=== PATIENT | female | born 1970 | race African-American/Black ===

== ENCOUNTER 2020-02-25 07:13 | Outpatient (REF) | payer MEDICAID, OTHER, SELFPAY ==
--- NOTE | 2020-02-25 07:36 | XR_ITS ---
EXAMINATION: RIGHT HIP. LUMBAR SPINE. CLINICAL INFORMATION: Pain right hip. Low back pain. COMPARISON: None TECHNIQUE: 2 views right hip. 5 views lumbar spine. FINDINGS: LUMBAR SPINE: There is normal lumbar lordosis. The vertebral heights and alignment is normal. There is no pars defect or listhesis on oblique views. No lytic or sclerotic process seen. The soft tissues are normal. RIGHT HIP: There is no visible acute fracture, dislocation or lytic process seen. There is mild inferior joint periarticular spurring. The soft tissues are normal. XR/XR lumbar spine 4V min IMPRESSION: Mild inferior right hip joint degenerative changes with spurring. No acute fracture, dislocation or lytic process seen. Unremarkable right hip exam
--- NOTE | 2020-02-25 07:38 | XR_ITS ---
EXAMINATION: RIGHT HIP. LUMBAR SPINE. CLINICAL INFORMATION: Pain right hip. Low back pain. COMPARISON: None TECHNIQUE: 2 views right hip. 5 views lumbar spine. FINDINGS: LUMBAR SPINE: There is normal lumbar lordosis. The vertebral heights and alignment is normal. There is no pars defect or listhesis on oblique views. No lytic or sclerotic process seen. The soft tissues are normal. RIGHT HIP: There is no visible acute fracture, dislocation or lytic process seen. There is mild inferior joint periarticular spurring. The soft tissues are normal. XR/XR hip RT min 2V IMPRESSION: Mild inferior right hip joint degenerative changes with spurring. No acute fracture, dislocation or lytic process seen. Unremarkable right hip exam
== END 2020-02-25 07:14 | disposition home or self-care (01) ==
LOC: HO.XRAY 07:13
PROVIDERS: Visit Provider Emergency Medicine
DX: M25.551 Pain in right hip (principal)
CPT/HCPCS: 72110; 73502

== ENCOUNTER 2020-03-18 16:11 | Emergency (ER) | payer MEDICAID, SELFPAY ==
[2020-03-18 16:45] VITALS: BP 196/177; PULSE 91; RESP 16; TEMP 36.7; O2SAT 96; BMI 34.2
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
[2020-03-18] MEDS: Amoxicillin/Potassium Clav 875 MG TABLET PO (20:24)
== END 2020-03-18 20:33 | disposition home or self-care (01) ==
PROVIDERS: Emergency Provider Emergency Medicine
DX: S01.551A Open bite of lip, initial encounter (principal); I10 Essential (primary) hypertension; E11.9 Type 2 diabetes mellitus without complications; Y04.1XXA Assault by human bite, initial encounter; Y93.9 Activity, unspecified; Y92.009 Unspecified place in unspecified non-institutional (private) residence as the place of occurrence of the external cause; Y99.0 Civilian activity done for income or pay; Z79.899 Other long term (current) drug therapy; Z23 Encounter for immunization
CPT/HCPCS: 90471; 90715; 99283; 99284

== ENCOUNTER 2020-03-27 10:11 | Outpatient (REF) | payer MEDICAID, SELFPAY ==
--- NOTE | 2020-03-27 10:13 | MR_ITS ---
EXAMINATION: MR LUMBAR SPINE WITHOUT CONTRAST CLINICAL INFORMATION: Chronic severe right hip pain. Radiculopathy. COMPARISON: Lumbar spine MRI from 11/01/2018. Lumbar spine radiographs from 02/25/2020. TECHNIQUE: MRI of the lumbar spine was obtained using routine sequences without contrast. FINDINGS: Minimal degenerative retrolisthesis of L5 on S1. Otherwise, normal anatomic alignment. Moderate degenerative disc disease at L5-S1. Mild degenerative disc disease at T11-T12 and L4-L5. Associated mild mixed Modic type discogenic endplate change at L5-S1. Mild marrow edema within the posterior elements of L5 suggestive of degenerative stress reaction. No additional suspicious marrow edema. The vertebral body heights are largely maintained. The conus medullaris terminates at the level of L1. The distal spinal cord is normal in appearance. No significant abnormalities of the paraspinal musculature. Limited evaluation of the intra-abdominal structures without significant abnormalities. The abdominal aorta is of normal contour and caliber. AXIAL SPINAL LEVELS: L1-L2: Normal annular contour. There is mild bilateral facet joint arthropathy. There is no neural foraminal stenosis. There is no spinal canal stenosis. L2-L3: Normal annular contour. There is moderate bilateral facet joint arthropathy. There is no neural foraminal stenosis. There is no spinal canal stenosis. L3-L4: Shallow diffuse disc bulge. There is moderate bilateral facet joint arthropathy. There is no neural foraminal stenosis. There is no spinal canal stenosis. L4-L5: Mild diffuse disc bulge. There is severe left and moderate right facet joint arthropathy. There is mild bilateral neural foraminal stenosis. There is stenosis of the subarticular zones with mild spinal canal stenosis centrally. L5-S1: Moderate diffuse disc bulge with superimposed small central protrusion. There is severe bilateral facet joint arthropathy. There is severe right and moderate to severe left neural foraminal stenosis. There is stenosis of the subarticular zones with no overt spinal canal stenosis centrally. MR/MR lumbar spine wo con IMPRESSION: Moderate degenerative spondyloarthropathy L5-S1. Mild multilevel degenerative spondyloarthropathy of the remainder of the lumbar spine. Most notably, there is mild spinal canal stenosis at L4-L5. Stenoses of the subarticular zones at L4-L5 and L5-S1. Moderate to severe neural foraminal stenoses at L5-S1 (worst on the right). Overall, degenerative changes at L5-S1 have mildly progressed compared to 11/01/2018. Degenerative changes at L4-L5 are similar to prior exam.
== END 2020-03-27 10:12 | disposition home or self-care (01) ==
LOC: HO.MRI 10:11
PROVIDERS: Visit Provider Emergency Medicine
DX: M25.551 Pain in right hip (principal); M54.16 Radiculopathy, lumbar region; M16.11 Unilateral primary osteoarthritis, right hip
CPT/HCPCS: 72148

== ENCOUNTER 2020-04-08 15:32 | Outpatient (REF) | payer MEDICAID, SELFPAY | END 2020-04-08 15:33 | disposition home or self-care (01) | LOC: HO.MRI 15:32 | PROVIDERS: Visit Provider Emergency Medicine | DX: Z13.89 Encounter for screening for other disorder (principal) ==

== ENCOUNTER 2020-06-14 07:37 | Outpatient (REF) | payer MEDICAID, SELFPAY ==
--- NOTE | ~2020-06-14 | MM_ITS ---
EXAMINATION: MM SCREENING DIGITAL BREAST TOMOSYNTHESIS, BILATERAL CLINICAL INFORMATION: Screening. Asymptomatic. The lifetime risk of breast cancer based on the Tyrer-Cuzick Model is 7%. COMPARISON: Mammography: 07/18/2018, 11/19/2016 TECHNIQUE: Digital breast tomosynthesis is performed in both the craniocaudal and mediolateral oblique views along with computer-aided detection (CAD). Synthesized 2D images are generated from the tomosynthesis. Additional bilateral exaggerated CC views are provided. FINDINGS: There are scattered areas of fibroglandular density (ACR BI-RADS breast composition Category b). Breast tissue borders on fatty replaced similar to prior studies. No developing density. There are no significant masses, abnormal calcifications, or other abnormalities. MM/MM tomosynthesis screening BI IMPRESSION: No mammographic evidence of malignancy. ASSESSMENT: BI-RADS 1: Negative RECOMMENDATION: Routine annual mammography screening. This patient's information was entered into a reminder system with a target due date for their next mammogram.
== END 2020-06-14 07:38 | disposition home or self-care (01) ==
LOC: HO.MAMMO 07:37
PROVIDERS: Visit Provider Registered Nurse Community Health
DX: Z12.31 Encounter for screening mammogram for malignant neoplasm of breast (principal)
CPT/HCPCS: 77063; 77067

== ENCOUNTER 2021-01-29 15:12 | Emergency (ER) | payer MEDICAID, OTHER, SELFPAY ==
--- NOTE | 2021-01-29 | ECG_ITS ---
Test Reason : chest pain Blood Pressure : / mmHG Vent. Rate : 082 BPM Atrial Rate : 082 BPM P-R Int : 168 ms QRS Dur : 076 ms QT Int : 386 ms P-R-T Axes : 061 -15 009 degrees QTc Int : 450 ms Sinus rhythm with occasional Premature ventricular complexes Minimal voltage criteria for LVH, may be normal variant ( R in aVL ) Borderline ECG No previous EKG. Referred By: Generic ED Physician Electronically Signed By:CHEIKH LOPEZ MD
[2021-01-29 15:36] VITALS: BP 135/77; PULSE 98; RESP 18; TEMP 36.8; O2SAT 89; BMI 33.7
[2021-01-29 19:18] VITALS: BP 153/92; PULSE 83; RESP 18; O2SAT 98
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
[2021-01-29 19:59] LABS: MANUAL DIFF FLAG NO
[2021-01-29 20:00] LABS: Basophils Percent Auto 0.5 % (0-2); Eosinophils Absolute Auto 0.1 X10*3/uL (0.0-0.4); Eosinophils Percent Auto 1.2 % (0-4); Imm Gran Abs Auto 0.02 X10*3/uL (0.00-0.03); Imm Gran Pct Auto 0.3 % (0.0-0.4); Lymphocytes Absolute Auto 4.1 X10*3/uL (1.2-4.9); Lymphocytes Percent Auto 53.9 % (20-40); Mean Corpuscular HGB Conc 31.6 g/dl (31.0-35.0); Mean Corpuscular Hemoglobin 26.7 pg (27.0-33.0); Mean Corpuscular Volume 84.4 fL (80.0-98.0); Mean Platelet Volume 9.4 fL (9.4-12.3); Monocytes Absolute Auto 0.6 X10*3/uL (0.1-1.2); Monocytes Percent Auto 7.7 % (2-11); Neutrophils Absolute Auto 2.8 x10*3/uL (2.0-8.3); Neutrophils Percent Auto 36.4 % (45-73); Platelet Count 311 X10*3/uL (160-400); White Blood Count 7.6 X10*3/uL (4.8-10.8)
[2021-01-29 20:13] LABS: Anion Gap 11 (12-20); Blood Urea Nitrogen 13 mg/dL (9-16); Calcium 9.5 mg/dL (8.4-10.2); Carbon Dioxide 30 mmol/L (22-29); Chloride 105 mmol/L (96-108); Creatinine Clr Calc Pharmacy 99.5; Estimated Glomerular Filt Rate > 60; Glucose Random 128 mg/dL (60-115); Sodium 142 mmol/L (135-145)
[2021-01-29 20:19] LABS: Troponin-I High Sensitivity < 3.5 ng/L (<3.5-17.0)
== END 2021-01-29 21:30 | disposition home or self-care (01) ==
PROVIDERS: Emergency Provider Internal Medicine
DX: R07.2 Precordial pain (principal); F43.20 Adjustment disorder, unspecified; I10 Essential (primary) hypertension; E11.9 Type 2 diabetes mellitus without complications
CPT/HCPCS: 36415; 80048; 84484; 85025; 93005; 99283; 99285

== ENCOUNTER 2021-07-22 11:05 | Emergency (ER) | payer MEDICAID, OTHER, SELFPAY ==
--- NOTE | ~2021-07-22 | XR_ITS ---
EXAMINATION: XR CHEST CLINICAL INFORMATION: Chest pain. COMPARISON: 03/24/2018 chest radiograph. TECHNIQUE: Frontal view of the chest was obtained. FINDINGS: No significant abnormality is noted involving the heart, lungs, mediastinum, bony thorax or soft tissues. XR/XR chest 1V IMPRESSION: No acute cardiopulmonary process.
--- NOTE | ~2021-07-22 | CT_ITS ---
EXAMINATION: CT ANGIOGRAM CHEST CLINICAL INFORMATION: Chest pain radiating to back COMPARISON: Chest radiograph 07/22/2021 TECHNIQUE: Multiple axial images were obtained through the chest after the administration of 70 mL of Omnipaque 350 intravenous contrast. Extensive vascular post-processing including two-dimensional and three-dimensional reformatted images were created and reviewed on an independent workstation. This CT examination was performed using dose optimization techniques as appropriate, variously including the following: *Automated exposure control *Adjustment of mA and/or kV according to patient size (this includes techniques or standardized protocols for targeted exams where dose is matched to indication/reason for exam; i.e. extremities or head) *Use of iterative reconstruction technique DLP: 584 mGy-cm VASCULAR FINDINGS: Marked motion artifact limits evaluation of the ascending aorta. The thoracic aorta appears unremarkable. There is no evidence of any aneurysm or dissection. 2 vessel branching pattern of the arch is seen with a common trunk involving the brachiocephalic and left carotid. No gross abnormalities seen involving the pulmonary arteries or pulmonary veins. Opacification of the pulmonary arteries is not adequate for PE diagnosis. The small visualized portion of the abdominal aorta appears normal with patent celiac SMA and single renal arteries bilaterally. NONVASCULAR FINDINGS: LUNGS: A tiny left upper lobe punctate calcified granuloma is present. The lungs are otherwise clear with no evidence of inflammation or worrisome nodules. MEDIASTINUM: The mediastinum is unremarkable. No mediastinal or hilar lymphadenopathy. PLEURA: There is no pleural effusion. No pleural mass or thickening. AXILLA: No lymphadenopathy. UPPER ABDOMEN: There is hepatic steatosis. OSSEOUS STRUCTURES: Degenerative changes present throughout the thoracic spine. CT/CT angio chest aorta IMPRESSION: No aortic dissection is seen. Fleischner guidelines were followed.
--- NOTE | 2021-07-22 11:39 | ED.CHESTPAIN ---
HPI - Chest Pain General Chief Complaint: Chest Pain Stated Complaint: CP RADIATING TO BACK Time Seen by Provider: 07/22/21 11:39 Source: patient Mode of arrival: EMS Limitations: no limitations History of Present Illness MD complaint: chest pain Onset (ago): hour(s) (8am this morning) Timing of current episode: constant Prior episodes: No Onset: during rest Pain location: substernal Pain radiation: back (wraps around both sides to back) Severity: moderate Quality: tightness and aching Relieving factors: rest Exacerbating factors: inspiration and movement Context: other (slept upright due to low back pain (chronic) was hunched over when she woke up couldn't lift her head or move and when she did hit caused pain in her chest) Associated symptoms: other (no associated symptoms) Treatment prior to arrival: aspirin Related Data Previous Rx's Medication Instructions Recorded amoxicillin 875 mg-potassium 1 tab PO Q12H 10 Days #20 tab 03/18/20 clavulanate 125 mg tablet (Augmentin) Allergies Allergy/AdvReac Type Severity Reaction Status Date / Time coffee (Coffea arabica) Allergy Intermediate VOMITING Verified 03/18/20 20:24 [COFFEE (BEVERAGE)] cabbage [CABBAGE] Allergy Mild ABDOMINAL Verified 03/18/20 20:24 PAIN, SWELLING, BLOATING cheese [CHEESE] Allergy Mild ABDOMINAL Verified 03/18/20 20:24 PAIN, SWELLING, BLOATING lactose [LACTOSE] Allergy Mild BLOATING Verified 03/18/20 20:24 peas [PEAS] Allergy Mild ABDOMINAL Verified 03/18/20 20:24 PAIN, SWELLING hydrochlorothiazide Allergy Unknown AMS Verified 03/18/20 20:24 [HYDROCHLOROTHIAZIDE] diphenhydramine AdvReac Intermediate HALLUCINATI Verified 03/18/20 20:24 [From BENADRYL] ONS broccoli [BROCCOLI] AdvReac Mild ABDOMINAL Verified 03/18/20 20:24 PAIN, BLOATING Review of Systems Review of Systems: Constitutional : No Weight loss, No Fever, No Chills ENT/Mouth : No sore throat, No Rhinorrhea Eyes: No Eye Pain, No Swelling Cardiovascular : pos Chest Pain, no SOB, no Dyspnea on Exertion, No Orthopnea, No Edema, No Palpitations Respiratory : No Cough, No Sputum Gastrointestinal : no Nausea, No Vomiting, No Diarrhea, No abdominal Pain, No Hematochezia, No Melena Genitourinary : No Dysuria, No Urinary Frequency Musculoskeletal : No joint pain, No Myalgias, No Joint Swelling Skin : No Skin Lesions, No rash Neuro : No Weakness, No Numbness, No Dizziness, No Headache Psych : No Anxiety/Panic, No Depression Heme/Lymph: No Bruising, No Lymphadenopathy Endocrine : No Polyuria, No Polydipsia All other systems reviewed and are negative [facility] Past Medical History Attestation statement: The following information was validated with the patient. Medical History Diabetes Hypertension Social History Social History Alcohol intake: never Patient Tobacco Use Status: Never used Tobacco Advance Directives: No Advance Directives Information Provided: Yes Physical Exam Vital Signs: Vital Signs: Last Vital Signs Temp 99.0 F 07/22/21 11:49 Pulse 98 07/22/21 11:49 Resp 22 H 07/22/21 11:49 BP 177/82 H 07/22/21 12:03 Pulse Ox 98 07/22/21 11:49 BMI result Body Mass Index 35.7 Appearance: Alert. Oriented X3. No acute distress. Eyes: Pupils equal, round and reactive to light. ENT: Pharynx normal. Neck: Normal inspection. Neck supple. CVS: Normal heart rate and rhythm. Pulses normal. Chest: ttp along chest wall reproduces pain Respiratory: No respiratory distress. Breath sounds normal. Abdomen: Soft and nontender. Skin: Skin warm and dry. Normal skin color. Normal skin turgor. Extremities: No lower extremity edema. No calf ttp Neuro: Oriented X 3. No motor deficit. No sensory deficit. Course Course Course Narrative: patient signed out pending CTA results and repeat troponin MDM - Chest Pain MDM Narrative Medical decision making narrative: 50 yo female with hx of HTN, DM slept upright in a chair with head pointing downwards when she woke up she couldn't raise her neck - when she tries to move and lift her head she has chest pain with no associated symptoms it does seem atypical but she reports chest pain radiating to the back and her R arm SBP > 20 points to left will obtain labs, troponin, IV morphine for pain CTA for dissection Lab Data Result diagrams: 07/22/21 12:01 07/22/21 12:01 Labs: Lab Results 07/22/21 07/22/21 07/22/21 Range/Units 12: 12: 12:01 WBC 5.6 (4.8-10.8) X10*3/uL RBC 4.89 (4.20-5.50) X10*6/uL Hgb 13.0 (12.0-16.0) g/dl Hct 41.0 (37.0-47.0) % MCV 83.8 (80.0-98.0) fL MCH 26.6 L (27.0-33.0) pg MCHC 31.7 (31.0-35.0) g/dl RDW 13.2 (11.0-16.0) % Plt Count 312 (160-400) X10*3/uL MPV 9.4 (9.4-12.3) fL Immature Gran % (Auto) 0.4 (0.0-0.4) % Neut % (Auto) 74.0 H (45-73) % Lymph % (Auto) 18.2 L (20-40) % [place] % (Auto) 7.2 (2-11) % Eos % (Auto) 0.0 (0-4) % Baso % (Auto) 0.2 (0-2) % Lymph # (Auto) 1.0 L (1.2-4.9) X10*3/uL [place] # (Auto) 0.4 (0.1-1.2) X10*3/uL Eos # (Auto) 0.0 (0.0-0.4) X10*3/uL Baso # (Auto) 0.0 (0.0-0.2) X10*3/uL Abs Immat Gran (auto) 0.02 (0.00-0.03) X10*3/uL Absolute Neuts (auto) 4.1 (2.0-8.3) x10*3/uL Absolute Nucleated RBC 0.000 (0.0-0.012) X10*3/uL Nucleated RBC % (auto) 0.0 (0.0-0.2) /100WBC PT (9.9-13.0) SEC INR (0.9-1.1) D-Dimer High Sensitivty NG/ML Sodium 138 (135-145) mmol/L Potassium 4.8 (3.3-5.1) mmol/L Chloride 102 (96-108) mmol/L Carbon Dioxide 27 (22-29) mmol/L Anion Gap 14 (12-20) BUN 11 (9-16) mg/dL Creatinine 0.81 (0.5-1.4) mg/dL Estim Creat Clear Calc 103.8 Estimated GFR > 60 Random Glucose 209 H (60-115) mg/dL Calcium 9.5 (8.4-10.2) mg/dL Magnesium 1.9 (1.6-2.6) mg/dL Total Bilirubin 0.4 (0.0-1.0) mg/dL Direct Bilirubin < 0.2 (0.0-0.5) mg/dL AST 28 (5-31) U/L ALT 28 (0-31) U/L Alkaline Phosphatase 98 (39-117) U/L Troponin I High Sens (<3.5-17.0) ng/L B-Natriuretic Peptide 12 (<100) pg/mL Total Protein 7.7 (6.5-8.0) g/dL Albumin 4.1 (3.5-5.0) g/dL Lipase 24 (8-78) U/L COVID-19 (MIS) (Negative) COVID-19 Clin Com 07/22/21 07/22/21 07/22/21 Range/Units 12:01 12:01 12:01 WBC (4.8-10.8) X10*3/uL RBC (4.20-5.50) X10*6/uL Hgb (12.0-16.0) g/dl Hct (37.0-47.0) % MCV (80.0-98.0) fL MCH (27.0-33.0) pg MCHC (31.0-35.0) g/dl RDW (11.0-16.0) % Plt Count (160-400) X10*3/uL MPV (9.4-12.3) fL Immature Gran % (Auto) (0.0-0.4) % Neut % (Auto) (45-73) % Lymph % (Auto) (20-40) % [place] % (Auto) (2-11) % Eos % (Auto) (0-4) % Baso % (Auto) (0-2) % Lymph # (Auto) (1.2-4.9) X10*3/uL [place] # (Auto) (0.1-1.2) X10*3/uL Eos # (Auto) (0.0-0.4) X10*3/uL Baso # (Auto) (0.0-0.2) X10*3/uL Abs Immat Gran (auto) (0.00-0.03) X10*3/uL Absolute Neuts (auto) (2.0-8.3) x10*3/uL Absolute Nucleated RBC (0.0-0.012) X10*3/uL Nucleated RBC % (auto) (0.0-0.2) /100WBC PT 11.0 (9.9-13.0) SEC INR 1.0 (0.9-1.1) D-Dimer High Sensitivty < 150 NG/ML Sodium (135-145) mmol/L Potassium (3.3-5.1) mmol/L Chloride (96-108) mmol/L Carbon Dioxide (22-29) mmol/L Anion Gap (12-20) BUN (9-16) mg/dL Creatinine (0.5-1.4) mg/dL Estim Creat Clear Calc Estimated GFR Random Glucose (60-115) mg/dL Calcium (8.4-10.2) mg/dL Magnesium (1.6-2.6) mg/dL Total Bilirubin (0.0-1.0) mg/dL Direct Bilirubin (0.0-0.5) mg/dL AST (5-31) U/L ALT (0-31) U/L Alkaline Phosphatase (39-117) U/L Troponin I High Sens < 3.5 (<3.5-17.0) ng/L B-Natriuretic Peptide (<100) pg/mL Total Protein (6.5-8.0) g/dL Albumin (3.5-5.0) g/dL Lipase (8-78) U/L COVID-19 (MIS) Negative (Negative) COVID-19 Clin Com See Note ECG Data ECG #1: Attestation: I personally reviewed and interpreted this ECG as follows: ECG interpretation date: 07/22/21 ECG interpretation time: 11:55 Interpretation: Rate: 95 Rhythm:NSR [place]: left, LVH Normal P waves. Normal ERROL. Normal QRS complex. ST T wave : normal no MELISSA qTC: normal prior studies: no acute ischemia The study has been interpreted contemporaneously by me. . Discharge Plan Discharge Clinical Impression: Chest pain Patient Disposition: Still a Patient Instructions: Chest Pain (ED) Additional Instructions: return to ED for any worsening symptoms or concerns Prescriptions: No Action amoxicillin-pot clavulanate [Augmentin] 875-125 mg tablet 1 tab PO Q12H 10 Days Qty: 20 0RF
--- NOTE | 2021-07-22 11:48 | ECG_ITS ---
Test Reason : chest pain Blood Pressure : / mmHG Vent. Rate : 095 BPM Atrial Rate : 095 BPM P-R Int : 154 ms QRS Dur : 070 ms QT Int : 364 ms P-R-T Axes : 062 -17 017 degrees QTc Int : 457 ms Normal sinus rhythm Minimal voltage criteria for LVH, may be normal variant ( R in aVL ) Borderline ECG When compared with ECG of 29-JAN-2021 19:47, Premature ventricular complexes are no longer Present Referred By: Ludy Alejandre Electronically Signed By:ALIS ANDREA
[2021-07-22 11:49] VITALS: BP 132/68; BP 157/95; PULSE 92; PULSE 98; RESP 22; TEMP 37.2; O2SAT 100; O2SAT 98; BMI 35.7
[2021-07-22 12:03] VITALS: BP 177/82
[2021-07-22] MEDS: Cyclobenzaprine HCl 10 MG TABLET PO (12:07)
[2021-07-22] MEDS: ondansetron HCL 4 MG/2 ML VIAL IVPUSH (12:08)
[2021-07-22] MEDS: Morphine Sulfate 4 MG/ML CARTRIDGE IVPUSH (12:08)
[2021-07-22 12:11] LABS: MANUAL DIFF FLAG NO
[2021-07-22 12:23] LABS: Basophils Percent Auto 0.2 % (0-2); Imm Gran Abs Auto 0.02 X10*3/uL (0.00-0.03); Imm Gran Pct Auto 0.4 % (0.0-0.4); Lymphocytes Percent Auto 18.2 % (20-40); Mean Corpuscular HGB Conc 31.7 g/dl (31.0-35.0); Mean Corpuscular Hemoglobin 26.6 pg (27.0-33.0); Mean Corpuscular Volume 83.8 fL (80.0-98.0); Mean Platelet Volume 9.4 fL (9.4-12.3); Monocytes Absolute Auto 0.4 X10*3/uL (0.1-1.2); Monocytes Percent Auto 7.2 % (2-11); Neutrophils Absolute Auto 4.1 x10*3/uL (2.0-8.3); Platelet Count 312 X10*3/uL (160-400); Red Blood Count 4.89 X10*6/uL (4.20-5.50); Red Cell Distribution Width 13.2 % (11.0-16.0); White Blood Count 5.6 X10*3/uL (4.8-10.8)
[2021-07-22 12:31] LABS: Alanine Aminotransferase 28 U/L (0-31); Albumin Level 4.1 g/dL (3.5-5.0); Alkaline Phosphatase 98 U/L (39-117); Anion Gap 14 (12-20); Aspartate Amino Transferase 28 U/L (5-31); Bilirubin Direct < 0.2 mg/dL (0.0-0.5); Bilirubin Total 0.4 mg/dL (0.0-1.0); Blood Urea Nitrogen 11 mg/dL (9-16); Calcium 9.5 mg/dL (8.4-10.2); Carbon Dioxide 27 mmol/L (22-29); Chloride 102 mmol/L (96-108); Creatinine Clr Calc Pharmacy 103.8; Estimated Glomerular Filt Rate > 60; Glucose Random 209 mg/dL (60-115); Lipase 24 U/L (8-78); Magnesium 1.9 mg/dL (1.6-2.6); Potassium 4.8 mmol/L (3.3-5.1); Sodium 138 mmol/L (135-145); Total Protein 7.7 g/dL (6.5-8.0)
[2021-07-22 12:33] LABS: Troponin-I High Sensitivity < 3.5 ng/L (<3.5-17.0)
[2021-07-22 12:34] LABS: B Type Natriuretic Peptide 12 pg/mL (<100)
[2021-07-22 12:35] LABS: D Dimer High Sensitivity < 150 NG/ML
[2021-07-22 12:48] LABS: COVID-19 Test Negative (Negative); IDNOW Serial# 55D5AD1C
[2021-07-22] MEDS: iohexoL 350 MG/ML 100 ML INFUS..BTL IV (16:06)
[2021-07-22 16:52] LABS: Troponin-I High Sensitivity < 3.5 ng/L (<3.5-17.0)
[2021-07-22 17:27] VITALS: BP 155/96; PULSE 108; RESP 16; TEMP 36.7; O2SAT 97
[2021-07-22] MEDS: Ibuprofen 600 MG TABLET PO (18:51)
== END 2021-07-22 18:59 | disposition home or self-care (01) ==
PROVIDERS: Emergency Provider Emergency Medicine
DX: R07.9 Chest pain, unspecified (principal); I10 Essential (primary) hypertension; E11.9 Type 2 diabetes mellitus without complications; Z20.822 Contact with and (suspected) exposure to COVID-19
CPT/HCPCS: 36415; 71045; 71275; 80048; 80076; 83690; 83735; 83880; 84484; 85025; 85379; 85610; 87635; 93005; 96374; 96375; 99284; 99285; J2270; J2405; Q9967

== ENCOUNTER 2021-10-02 14:31 | Outpatient (REF) | payer MEDICAID, OTHER, SELFPAY ==
--- NOTE | ~2021-10-02 | MM_ITS ---
EXAMINATION: MM SCREENING DIGITAL BREAST TOMOSYNTHESIS, BILATERAL CLINICAL INFORMATION: Screening. Asymptomatic. The lifetime risk of breast cancer based on the Tyrer-Cuzick Model is 7%. COMPARISON: Mammography: 06/14/2020, 07/15/2018, 11/19/2016 TECHNIQUE: Digital breast tomosynthesis is performed in both the craniocaudal and mediolateral oblique views along with computer-aided detection (CAD). Synthesized 2D images are generated from the tomosynthesis. FINDINGS: There are scattered areas of fibroglandular density (ACR BI-RADS breast composition Category b). There are no significant masses, abnormal calcifications, or other abnormalities. Breast tissue borders on predominantly fatty. No significant changes. MM/MM tomosynthesis screening BI IMPRESSION: No mammographic evidence of malignancy. ASSESSMENT: BI-RADS 1: Negative RECOMMENDATION: Routine annual mammography screening. This patient's information was entered into a reminder system with a target due date for their next mammogram.
== END 2021-10-02 14:32 | disposition home or self-care (01) ==
LOC: HO.MAMMO 14:31
PROVIDERS: PCP Registered Nurse Community Health; Visit Provider Registered Nurse Community Health
DX: Z12.31 Encounter for screening mammogram for malignant neoplasm of breast (principal)
CPT/HCPCS: 77063; 77067

== ENCOUNTER 2023-05-30 14:37 | Outpatient (REF) | payer MEDICAID, OTHER, SELFPAY ==
--- NOTE | ~2023-05-30 | XR_ITS ---
EXAMINATION: XR FOOT, LEFT CLINICAL INFORMATION: Left foot heel pain COMPARISON: Right foot 12/03/2015 TECHNIQUE: AP, lateral, and oblique views of the left foot. FINDINGS: A plantar calcaneal spur is present similar to what was seen in the right foot in 2016. Small rounded bony area seen in the superior calcaneus near the insertion of the Achilles tendon may be related to enthesopathy. The bones and soft tissues of the foot are otherwise unremarkable. No fracture. Alignment is anatomic. Joint spaces are maintained. XR/XR foot LT min 3V IMPRESSION: 1. Plantar calcaneal spur. 2. Possible enthesopathy at the insertion of the Achilles tendon.
== END 2023-05-30 14:38 | disposition home or self-care (01) ==
LOC: HO.HHCX 14:37
PROVIDERS: Visit Provider Nurse Practitioner Family
DX: M79.672 Pain in left foot (principal)
CPT/HCPCS: 73630

== ENCOUNTER 2023-12-09 09:43 | Outpatient (REF) | payer MEDICAID, OTHER, SELFPAY ==
[2023-12-12 21:44] LABS: Lyme Abs Screen <0.90 index
== END 2023-12-09 09:44 | disposition home or self-care (01) ==
LOC: HO.HHCL 09:43
PROVIDERS: Visit Provider Emergency Medicine
DX: M54.2 Cervicalgia (principal)
CPT/HCPCS: 36415; 86617; 86618

== ENCOUNTER 2023-12-18 09:53 | Emergency (ER) | payer MEDICAID, OTHER, SELFPAY ==
--- NOTE | ~2023-12-18 | CT_ITS ---
EXAMINATION: CT HEAD WITHOUT CONTRAST CT CERVICAL SPINE WITHOUT CONTRAST CLINICAL INFORMATION: Headache. COMPARISON: No relevant prior imaging. TECHNIQUE: [employer] images were obtained. CAD imaging of the head and cervical spine was performed without contrast. Data was reformatted into multiplanar images at the acquisition workstation. This CT examination was performed using dose optimization techniques as appropriate, including one or more of the following: Automated exposure control, iterative reconstruction, and adjustment of technique factors (mA and/or kVp) according to patient size (this includes techniques or standardized protocols for targeted exams where dose is matched to indication/reason for exam). Fleischner Society criteria for the followup of incidental pulmonary nodules was implemented if appropriate. DLP: 1406 mGy-cm. FINDINGS: There is no acute intracranial hemorrhage or abnormal extra-axial collection. No intracranial mass effect or midline shift. Lateral and third ventricles are normal. No hydrocephalus. Garduno-white matter differentiation is preserved and there is no evidence of acute territorial infarct. The calvarium and skull base are intact. Mastoid air cells and middle ear cavities are well aerated. No active paranasal sinus disease. Cervical spine: Spinal alignment is normal. Vertebral body heights are preserved. No acute fracture. No abnormal prevertebral soft tissue swelling. There is slight loss of intervertebral disc height with associated sclerotic degenerative endplate changes and hypertrophic disc osteophyte spurring at multiple levels. Grossly no spinal canal compromise. Visualized soft tissues of the neck are normal. Lung apices are clear. CT/CT head/brain wo IV con IMPRESSION: Head: Unremarkable examination. No evidence of acute territorial infarct or hemorrhage. Cervical Spine: There is multilevel degenerative spondylosis of the cervical spine. No evidence of acute fracture and no posttraumatic spinal subluxation. Grossly no spinal canal compromise. Electronically signed by: Ced Esparza MD 12/18/2023 02:22 PM EDT
--- NOTE | ~2023-12-18 | CT_ITS ---
EXAMINATION: CT HEAD WITHOUT CONTRAST CT CERVICAL SPINE WITHOUT CONTRAST CLINICAL INFORMATION: Headache. COMPARISON: No relevant prior imaging. TECHNIQUE: [employer] images were obtained. CAD imaging of the head and cervical spine was performed without contrast. Data was reformatted into multiplanar images at the acquisition workstation. This CT examination was performed using dose optimization techniques as appropriate, including one or more of the following: Automated exposure control, iterative reconstruction, and adjustment of technique factors (mA and/or kVp) according to patient size (this includes techniques or standardized protocols for targeted exams where dose is matched to indication/reason for exam). Fleischner Society criteria for the followup of incidental pulmonary nodules was implemented if appropriate. DLP: 1406 mGy-cm. FINDINGS: There is no acute intracranial hemorrhage or abnormal extra-axial collection. No intracranial mass effect or midline shift. Lateral and third ventricles are normal. No hydrocephalus. Garduno-white matter differentiation is preserved and there is no evidence of acute territorial infarct. The calvarium and skull base are intact. Mastoid air cells and middle ear cavities are well aerated. No active paranasal sinus disease. Cervical spine: Spinal alignment is normal. Vertebral body heights are preserved. No acute fracture. No abnormal prevertebral soft tissue swelling. There is slight loss of intervertebral disc height with associated sclerotic degenerative endplate changes and hypertrophic disc osteophyte spurring at multiple levels. Grossly no spinal canal compromise. Visualized soft tissues of the neck are normal. Lung apices are clear. CT/CT cervical spine wo IV con IMPRESSION: Head: Unremarkable examination. No evidence of acute territorial infarct or hemorrhage. Cervical Spine: There is multilevel degenerative spondylosis of the cervical spine. No evidence of acute fracture and no posttraumatic spinal subluxation. Grossly no spinal canal compromise. Electronically signed by: Ced Esparza MD 12/18/2023 02:22 PM EDT
[2023-12-18 10:02] VITALS: BP 171/77; PULSE 90; RESP 16; TEMP 36; O2SAT 98; BMI 39.5
[2023-12-18 11:47] LABS: MANUAL DIFF FLAG NO
[2023-12-18 11:48] VITALS: BP 157/81; PULSE 82; RESP 16; TEMP 36.6; O2SAT 100
[2023-12-18 11:51] LABS: Basophils Percent Auto 0.8 % (0-2); Eosinophils Percent Auto 0.6 % (0-4); Hematocrit 41.6 % (37.0-47.0); Hemoglobin 13.4 g/dl (12.0-16.0); Imm Gran Abs Auto 0.01 X10*3/uL (0.00-0.03); Imm Gran Pct Auto 0.2 % (0.0-0.4); Lymphocytes Absolute Auto 2.4 X10*3/uL (1.2-4.9); Mean Corpuscular HGB Conc 32.2 g/dl (31.0-35.0); Mean Corpuscular Hemoglobin 26.8 pg (27.0-33.0); Mean Corpuscular Volume 83.2 fL (80.0-98.0); Mean Platelet Volume 9.4 fL (9.4-12.3); Monocytes Absolute Auto 0.3 X10*3/uL (0.1-1.2); Monocytes Percent Auto 6.4 % (2-11); Platelet Count 315 X10*3/uL (160-400); Red Cell Distribution Width 13.2 % (11.0-16.0); White Blood Count 4.9 X10*3/uL (4.8-10.8)
[2023-12-18] MEDS: 0.9 % Sodium Chloride 1,000 ML 999 ML IV ×2 (11:51→13:12)
--- NOTE | 2023-12-18 11:54 | ED.GENADULT ---
HPI - General Adult General Chief complaint: Neck Pain/Injury Stated complaint: Neck pain/Headache Time Seen by Provider: 12/18/23 10:58 Source: patient Mode of arrival: ambulatory Limitations: no limitations History of Present Illness ED Provider: DR. Galvin HPI narrative: 53-year-old female came in for evaluation of right-sided neck pain radiates up to behind the right ear and down to the right shoulder pain started 3 weeks ago patient was evaluated at [facility] was discharged on prophylactic antibiotic, and pain medication the patient stated did not improve. Patient declined having a fever or photophobia, pain is more if she tried to turn her neck to the left side, or squeeze her right side of the neck. No history of trauma or injury or strenuous activity recently. Related Data Previous Rx's ?Medication ?Instructions ?Recorded amoxicillin 875 mg-potassium 1 tab PO Q12H 10 days #20 tabs 03/18/20 clavulanate 125 mg tablet (Augmentin) ibuprofen 600 mg tablet 600 mg PO Q6H PRN pain #30 tabs 07/22/21 cyclobenzaprine 10 mg tablet 10 mg PO TID PRN muscle spasm #20 12/18/23 tabs oxycodone 5 mg tablet 5 mg PO BID PRN pain #10 tabs 12/18/23 Allergies Allergy/AdvReac Type Severity Reaction Status Date / Time coffee (Coffea arabica) Allergy Intermediate VOMITING Verified 12/18/23 10:06 [COFFEE (BEVERAGE)] cabbage [CABBAGE] Allergy Mild ABDOMINAL Verified 12/18/23 10:06 PAIN, SWELLING, BLOATING cheese [CHEESE] Allergy Mild ABDOMINAL Verified 12/18/23 10:06 PAIN, SWELLING, BLOATING lactose [LACTOSE] Allergy Mild BLOATING Verified 12/18/23 10:06 peas [PEAS] Allergy Mild ABDOMINAL Verified 12/18/23 10:06 PAIN, SWELLING hydrochlorothiazide Allergy Unknown AMS Verified 12/18/23 10:06 [HYDROCHLOROTHIAZIDE] diphenhydramine AdvReac Intermediate HALLUCINATI Verified 12/18/23 10:06 [From BENADRYL] ONS broccoli [BROCCOLI] AdvReac Mild ABDOMINAL Verified 12/18/23 10:06 PAIN, BLOATING Review of Systems Review of Systems: All other systems are reviewed and are negative Constitutional: Reports as per HPI and Reports no additional constitutional complaints Eyes: Reports as per HPI and Reports no additional eye complaints Reports system reviewed and no additional complaints, except as documented Cardiovascular: Reports as per HPI and Reports no additional cardiovascular complaints Respiratory: Reports as per HPI and Reports no additional respiratory complaints Gastrointestinal: Reports as per HPI and Reports no additional gastrointestinal complaints Genitourinary: Reports no additional female genitourinary complaints Musculoskeletal: Reports no additional musculoskeletal complaints Skin/Breast: Reports system reviewed and no additional complaints, except as docu Psychiatric: Reports no additional psychiatric complaints Endocrine: Reports no additional endocrine complaints Hematologic/Lymphatic: Reports no additional hematologic/lymphatic complaints Allergic/Immunologic: Reports no additional allergic/immunologic complaints Reports system reviewed and no additional complaints, except as documented and Reports Abnormal speech present [facility] Past Medical History Medical History Hypertension Diabetes Social History Social History Alcohol intake: never Patient Tobacco Use Status: Never used Tobacco Smoked in Last 30 Days: No Use of substances other than those prescribed or required for medical reasons: No Advance Directives: No Advance Directives Information Provided: No Patient : No Physical Exam ED Vital Signs: Vital Signs - 24 hr 12/18/23 10:02 12/18/23 11:48 12/18/23 13:05 Temperature 96.8 F 97.9 F Pulse Rate 90 82 Respiratory Rate 16 16 14 Blood Pressure 171/77 H 157/81 H Pulse Oximetry 98 100 Oxygen Delivery Method Room Air Room Air BMI result Body Mass Index 39.5 Vital signs have been reviewed and appear to be correct. Blood pressure elevated. Heart rate normal. Respiratory rate normal. Temperature normal. Oxygen saturation normal. Appearance: Alert. Oriented X3. No acute distress. Head: Normal external exam. Normocephalic. Atraumatic. No Juan signs noted. No raccoon eyes noted Eyes: PERRLA. EOMI. Conjunctiva and sclera normal. Eyelids normal. ENT: TM's Normal. Pharynx normal. Uvula midline. Moist mucous membranes. No trismus noted. No drooling noted. No muffled voice noted. Neck: Normal inspection. Neck supple. FROM. No adenopathy. Thyroid Normal. No meningeal signs. No neck mass noted. Spasm of the right sternocleinoide muscle, unable to turn her head to the left side due to spasm. CVS: Normal heart rate and rhythm. Heart sound normal. No murmurs noted. Pulses normal throughout. Respiratory: No respiratory distress. Painless inspiration. Breath sounds normal. No wheezes/rales/rhonchi noted. Chest nontender. No accessory muscle usage noted or decreased air movement noted. Abdomen: Soft and nontender. Bowel sounds normal in all 4 quadrants. No distention noted. No organomegaly noted. No visible injury noted. Back: No CVA tenderness. Full range of motion noted. Skin: Skin warm and dry. Normal skin color. Normal skin turgor. No rashes/lesions/lacerations noted. Extremities: No lower extremity edema. Extremities exhibit normal range of motion. Extremities nontender. Neuro: Oriented X 3. Cranial nerve exam: II-XII are grossly intact No motor deficit. No sensory deficit. Reflexes normal. Course Reevaluation(s) Reevaluation #1: 53-year-old female came in with history of 3 weeks of neck pain radiating to head and shoulder, no photophobia, no fever, no chills, No leukocytosis and normal sed rate, no risk for meningitis or encephalitis, physical exam is more consistent with muscular spasm patient felt better after received Toradol and morphine, has more neck mobility and less stiffness. no indication for infectious process on CT of the head and neck. Lactic acidosis likely secondary to decreased hydration with improvement of lactic acid after IV fluids. Time: 15:00 Medications Administered Discontinued Medications Generic Name Dose Route Start Last Admin Trade Name Freq PRN Reason Stop Dose Admin Sodium Chloride 1,000 mls @ 999 mls/hr 12/18/23 10:59 12/18/23 14:31 Ns IV 12/18/23 11:59 Infused .Q1H1M ONE Infusion Sodium Chloride 1,000 mls @ 999 mls/hr 12/18/23 12:16 12/18/23 13:12 Ns IV 12/18/23 13:16 999 mls/hr .Q1H1M ONE Administration Ketorolac Tromethamine 30 mg 12/18/23 11:55 12/18/23 13:05 Ketorolac Tromethamine 30 Mg/Ml Vial IVPUSH 12/18/23 11:56 30 mg ONCE ONE Administration Morphine Sulfate 1 mg 12/18/23 11:55 12/18/23 13:05 Morphine Sulfate 2 Mg/Ml Cartridge IVPUSH 12/18/23 11:56 1 mg ONCE ONE Administration Protocol Medical Decision Making Differential Diagnosis Differential Diagnoses: The differential diagnosis associated with the presentation includes ( Meningitis, intracranial bleed, soft tissue neck abscess, myofascial spasm, rhabdomyolysis, cervical radiculopathy, severe anemia, electrolyte derangement.) Admission/Observation Consideration of admission/observation: Escalation of care including admission/observation considered Lab Data MDM Lab Attestation statement: I reviewed the patient's lab results. 12/18/23 11:40 12/18/23 11:40 Labs: Lab Results 12/18/23 12/18/23 12/18/23 Range/Units 11:40 11:41 11:52 WBC 4.9 (4.8-10.8) X10*3/uL RBC 5.00 (4.20-5.50) X10*6/uL Hgb 13.4 (12.0-16.0) g/dl Hct 41.6 (37.0-47.0) % MCV 83.2 (80.0-98.0) fL MCH 26.8 L (27.0-33.0) pg MCHC 32.2 (31.0-35.0) g/dl RDW 13.2 (11.0-16.0) % Plt Count 315 (160-400) X10*3/uL MPV 9.4 (9.4-12.3) fL Immature Gran % (Auto) 0.2 (0.0-0.4) % Neut % (Auto) 42.0 L (45-73) % Lymph % (Auto) 50.0 H (20-40) % Estill % (Auto) 6.4 (2-11) % Eos % (Auto) 0.6 (0-4) % Baso % (Auto) 0.8 (0-2) % Lymph # (Auto) 2.4 (1.2-4.9) X10*3/uL Estill # (Auto) 0.3 (0.1-1.2) X10*3/uL Eos # (Auto) 0.0 (0.0-0.4) X10*3/uL Baso # (Auto) 0.0 (0.0-0.2) X10*3/uL Abs Immat Gran (auto) 0.01 (0.00-0.03) X10*3/uL Absolute Neuts (auto) 2.0 (2.0-8.3) x10*3/uL Absolute Nucleated RBC 0.000 (0.0-0.012) X10*3/uL Nucleated RBC % (auto) 0.0 (0.0-0.2) /100WBC ESR 7 (0-20) MM/HR Hold Purple Top SEE NOTE Sodium 139 (135-145) mmol/L Potassium 3.6 (3.3-5.1) mmol/L Chloride 105 (96-108) mmol/L Carbon Dioxide 25 (22-29) mmol/L Anion Gap 13 (12-20) BUN 10 (9-16) mg/dL Creatinine 0.85 (0.5-1.4) mg/dL Estim Creat Clear Calc 88.0 Estimated GFR > 60 Random Glucose 209 H (60-115) mg/dL Lactic Acid 2.6 H* (0.5-2.0) mmol/L Calcium 10.1 D (8.4-10.2) mg/dL Total Bilirubin 0.4 (0.0-1.0) mg/dL Direct Bilirubin 0.1 (0.0-0.5) mg/dL AST 19 (5-31) U/L ALT 26 (0-31) U/L Alkaline Phosphatase 86 (39-117) U/L Total Creatine Kinase 117 (26-140) U/L Troponin I High Sens < 2.7 (<3.5-17.0) ng/L C-Reactive Protein 0.68 H (< or = 0.50) mg/dL Total Protein 8.3 H (6.5-8.0) g/dL Albumin 4.5 (3.5-5.0) g/dL Lipase 23 (8-78) U/L Urine Color Yellow Urine Appearance Clear Urine pH 6.5 (5.0-9.0) Ur Specific Lyman 1.015 (1.005-1.025) Urine Protein Negative (Neg-Trace) mg/dL Urine Glucose (UA) 100 H (Negative) mg/dL Urine Ketones Negative (Negative) mg/dL Urine Blood Negative (Negative) Urine Nitrite Negative (Negative) Ur Leukocyte Esterase Negative (Negative) Influenza Type A (PCR) (Negative) Influenza Type B (PCR) (Negative) RSV RNA Qual (PCR) (Negative) SARS-CoV-2 RNA (RT-PCR) (Negative) 12/18/23 Range/Units 12:44 WBC (4.8-10.8) X10*3/uL RBC (4.20-5.50) X10*6/uL Hgb (12.0-16.0) g/dl Hct (37.0-47.0) % MCV (80.0-98.0) fL MCH (27.0-33.0) pg MCHC (31.0-35.0) g/dl RDW (11.0-16.0) % Plt Count (160-400) X10*3/uL MPV (9.4-12.3) fL Immature Gran % (Auto) (0.0-0.4) % Neut % (Auto) (45-73) % Lymph % (Auto) (20-40) % Estill % (Auto) (2-11) % Eos % (Auto) (0-4) % Baso % (Auto) (0-2) % Lymph # (Auto) (1.2-4.9) X10*3/uL Estill # (Auto) (0.1-1.2) X10*3/uL Eos # (Auto) (0.0-0.4) X10*3/uL Baso # (Auto) (0.0-0.2) X10*3/uL Abs Immat Gran (auto) (0.00-0.03) X10*3/uL Absolute Neuts (auto) (2.0-8.3) x10*3/uL Absolute Nucleated RBC (0.0-0.012) X10*3/uL Nucleated RBC % (auto) (0.0-0.2) /100WBC ESR (0-20) MM/HR Hold Purple Top Sodium (135-145) mmol/L Potassium (3.3-5.1) mmol/L Chloride (96-108) mmol/L Carbon Dioxide (22-29) mmol/L Anion Gap (12-20) BUN (9-16) mg/dL Creatinine (0.5-1.4) mg/dL Estim Creat Clear Calc Estimated GFR Random Glucose (60-115) mg/dL Lactic Acid (0.5-2.0) mmol/L Calcium (8.4-10.2) mg/dL Total Bilirubin (0.0-1.0) mg/dL Direct Bilirubin (0.0-0.5) mg/dL AST (5-31) U/L ALT (0-31) U/L Alkaline Phosphatase (39-117) U/L Total Creatine Kinase (26-140) U/L Troponin I High Sens (<3.5-17.0) ng/L C-Reactive Protein (< or = 0.50) mg/dL Total Protein (6.5-8.0) g/dL Albumin (3.5-5.0) g/dL Lipase (8-78) U/L Urine Color Urine Appearance Urine pH (5.0-9.0) Ur Specific Lyman (1.005-1.025) Urine Protein (Neg-Trace) mg/dL Urine Glucose (UA) (Negative) mg/dL Urine Ketones (Negative) mg/dL Urine Blood (Negative) Urine Nitrite (Negative) Ur Leukocyte Esterase (Negative) Influenza Type A (PCR) NEGATIVE (Negative) Influenza Type B (PCR) NEGATIVE (Negative) RSV RNA Qual (PCR) NEGATIVE (Negative) SARS-CoV-2 RNA (RT-PCR) NEGATIVE (Negative) Independent Interpretation I performed an independent interpretation of an: CT Scan ( head/cervical spine CT:There is no acute intracranial hemorrhage or abnormal extra-axial collection. No intracranial mass effect or midline shift. Lateral and third ventricles are normal. No hydrocephalus. Garduno-white matter differentiation is preserved and there is no evidence of acute territor) Radiology Impression Discussion of test interpretation with radiology: I have reviewed the radiologist's reading. Discharge Plan Discharge Clinical Impression: Strain of neck muscle Patient Disposition: Home, Self-Care Instructions: Cervical Strain (ED) Prescriptions: New oxycodone 5 mg tablet 5 mg PO BID PRN (Reason: pain) Qty: 10 0RF Rx Instructions: Partial Fill upon patient request. cyclobenzaprine 10 mg tablet 10 mg PO TID PRN (Reason: muscle spasm) Qty: 20 0RF No Action amoxicillin-pot clavulanate [Augmentin] 875-125 mg tablet 1 tab PO Q12H 10 Days Qty: 20 0RF ibuprofen 600 mg tablet 600 mg PO Q6H PRN (Reason: pain) Qty: 30 0RF Referrals: [facility] [Physician] - Print Language: Cymro
[2023-12-18 12:00] LABS: Appearance Urine Clear; Color Urine Yellow; Glucose Urine UA 100 mg/dL (Negative); Leukocyte Esterase Urine Negative (Negative); Nitrite Urine Negative (Negative); PH 6.5 (5.0-9.0); Specific Gravity - Urine 1.015 (1.005-1.025); Urine Blood Negative (Negative); Urine Ketones Negative (Negative); Urine Protein Negative (Neg-Trace)
[2023-12-18 12:05] LABS: Alanine Aminotransferase 26 U/L (0-31); Albumin Level 4.5 g/dL (3.5-5.0); Alkaline Phosphatase 86 U/L (39-117); Anion Gap 13 (12-20); Aspartate Amino Transferase 19 U/L (5-31); Bilirubin Direct 0.1 mg/dL (0.0-0.5); Bilirubin Total 0.4 mg/dL (0.0-1.0); Blood Urea Nitrogen 10 mg/dL (9-16); C Reactive Protein 0.68 mg/dL (< or = 0.50); Calcium 10.1 mg/dL (8.4-10.2); Carbon Dioxide 25 mmol/L (22-29); Chloride 105 mmol/L (96-108); Estimated Glomerular Filt Rate > 60; Glucose Random 209 mg/dL (60-115); Lipase 23 U/L (8-78); Potassium 3.6 mmol/L (3.3-5.1); Sodium 139 mmol/L (135-145); Total Protein 8.3 g/dL (6.5-8.0)
[2023-12-18 12:15] LABS: Lactic Acid 2.6 mmol/L (0.5-2.0); Troponin-I High Sensitivity < 2.7 ng/L (<3.5-17.0)
[2023-12-18 12:28] LABS: Erythrocyte Sedimentation Rate 7 MM/HR (0-20)
[2023-12-18 13:05] VITALS: RESP 14
[2023-12-18] MEDS: Ketorolac Tromethamine 30 MG/ML VIAL IVPUSH (13:05)
[2023-12-18] MEDS: Morphine Sulfate 2 MG/ML CARTRIDGE 1 MG IVPUSH (13:05)
[2023-12-18 13:34] LABS: Influenza A PCR NEGATIVE (Negative); Influenza B PCR NEGATIVE (Negative); Resp Syncy Virus RNA Qual PCR NEGATIVE (Negative); SARS COV2 PCR INHOUSE NEGATIVE (Negative)
[2023-12-18 13:45] LABS: Reflex Lactate? Lactic Acid Added
[2023-12-18 15:30] VITALS: BP 135/78; PULSE 79; RESP 17; O2SAT 98
[2023-12-18 15:34] LABS: ~Lactic Acid-LAB USE ONLY 1.6 mmol/L (0.5-2.0)
[2023-12-18 16:29] VITALS: BP 140/82; PULSE 82; RESP 16; TEMP 36.5; O2SAT 100
== END 2023-12-18 16:44 | disposition home or self-care (01) ==
PROVIDERS: Emergency Provider Emergency Medicine
DX: S16.1XXA Strain of muscle, fascia and tendon at neck level, initial encounter (principal); M54.2 Cervicalgia; R51.9 Headache, unspecified; H92.01 Otalgia, right ear; X58.XXXA Exposure to other specified factors, initial encounter; Y93.89 Activity, other specified; Y92.89 Other specified places as the place of occurrence of the external cause; Y99.8 Other external cause status; Z03.818 Encounter for observation for suspected exposure to other biological agents ruled out; Z79.899 Other long term (current) drug therapy
CPT/HCPCS: 0241U; 36415; 70450; 72125; 80048; 80076; 81003; 82550; 83605; 83690; 84484; 85025; 85652; 86140; 87040; 96361; 96374; 96375; 99284; 99285; J1885; J2270

== ENCOUNTER 2024-07-30 12:11 | Outpatient (REF) | payer MEDICAID, OTHER, SELFPAY ==
[2024-07-30 13:30] LABS: Hematocrit 38.6 % (37.0-47.0); Hemoglobin 12.2 g/dl (12.0-16.0); Mean Corpuscular HGB Conc 31.6 g/dl (31.0-35.0); Mean Corpuscular Hemoglobin 26.8 pg (27.0-33.0); Mean Corpuscular Volume 84.6 fL (80.0-98.0); Mean Platelet Volume 9.9 fL (9.4-12.3); NRBC Pct Auto 0.3 /100WBC (0.0-0.2); Platelet Count 340 X10*3/uL (160-400); Red Blood Count 4.56 X10*6/uL (4.20-5.50); Red Cell Distribution Width 13.8 % (11.0-16.0); White Blood Count 6.6 X10*3/uL (4.8-10.8)
[2024-07-30 13:32] LABS: Estimated Average Glucose 186 mg/dL; Hemoglobin A1C 209.2988 umol/L; Hemoglobin A1c % 8.1 % (<6.0); Total Hemoglobin (HGBA1C) 3198.3173 umol/L
--- OUTSIDE RECORDS SUMMARY | 2024-07-30 13:43 | XMS_ITS | Clinical Summary ---
Author Organization [facility] Address [address] [place] [address] Care Team Providers Care Engineering Supplies Sales Name Role Phone Miah Emerson Primary Care Provider [phone] Allergies Active Allergy Reactions Criticality Noted Date Comments Latex, Natural Rubber 07/02/2020 Added based on information entered during case entry, please review and add reactions, type, and severity as needed Medications acetaminophen- codeine (TYLENOL #3) 300-30 mg tablet Take 1 tablet by mouth every 6 hours as needed. 1 7 Active amLODIPine (NORVASC) 10 mg tablet TAKE (1) TABLET DAILY. 5 7 Active VITAMIN C 250 mg tablet TAKE (1) TABLET 3 TIMES DAILY. 4 7 Active atenolol (TENORMIN) 25 mg tablet TAKE (1) TABLET DAILY. 5 7 Active VITAMIN D3 2,000 unit capsule Take 1 capsule by mouth. 5 7 Active glipiZIDE (GLUCOTROL) 10 mg tablet TAKE (1) TABLET TWICE DAILY BEFORE MEALS 6 7 Active lisinopril (PRINIVIL,ZEST RIL) 40 mg tablet TAKE (1) TABLET DAILY. 5 7 Active metFORMIN (GLUCOPHAGE) 850 mg tablet TAKE 1 TABLET TWICE DAILY WITH BREAKFAST AND DINNER. 3 7 Active Freestyle Lite test strips test blood sugar 5 7 Active fluticasone (FLONASE) 50 mcg/actuation nasal spray Administer 1 spray into each nostril. 0 7 Active PROAIR HFA 90 mcg/actuation inhaler INHALE 2 PUFFS FOUR TIMES DAILY NEEDED FOR WHEEZING 0 Active amoxicillin (AMOXIL) 500 mg capsule TAKE 1 CAPSULE BY MOUTH EVERY 8 HOURS UNTIL FINISHED 0 Active atorvastatin (LIPITOR) 40 mg tablet Take 40 mg by mouth nightly. at bedtime Pt states she is not taking 0 Active azithromycin (ZITHROMAX) 250 mg tablet TAKE 2 TABLETS BY MOUTH ON DAY 1, THEN TAKE 1 TABLET DAILY ON DAYS 2-5 0 Active ciclopirox (PENLAC) 8 % solution APPLY TO affected toenails EVERY DAY, preferably AT BEDTIME OR 8 HOURS BEFORE WASHING 0 Active cyclobenzaprin e (FLEXERIL) 10 mg tablet Take 10 mg by mouth 3 times a day. 9 Active DELSYM 12 HOUR 30 mg/5 mL liquid TAKE 10 ML BY MOUTH EVERY TWELVE HOURS NEEDED FOR COUGH 0 Active VOLTAREN 1 % gel APPLY 2g TO AFFECTED AREA(S) THREE TIMES DAILY 9 Active TRULICITY 0.75 mg/0.5 mL injection dose INJECT ONE PEN (=0.75MG) SUBCUTANEOUSLY ONCE A WEEK DIRECTED 0 Active erythromycin (ILOTYCIN) 0.5% ophthalmic ointment APPLY SMALL AMOUNT TO LEFT UPPER EYELID TWICE DAILY FOR 7 DAYS 0 Active ibuprofen (MOTRIN) 800 mg tablet Take 800 mg by mouth 3 times a day with meals. 9 Active ipratropium (ATROVENT) 0.03% nasal spray USE 2 SPRAYS IN EACH NOSTRIL 2-3 TIMES DAILY 0 Active lidocaine (LIDODERM) 5% patch apply 1 patch to skin leave on for 12 hours and off for 12 hours as directed 9 Active PARoxetine (PAXIL) 10 mg tablet Take 10 mg by mouth daily. 9 Active traMADoL (ULTRAM) 50 mg tablet TAKE 1 TABLET BY MOUTH EVERY TWELVE HOURS NEEDED 9 Active metFORMIN XR (GLUCOPHAGE-XR ) 750 mg 24 hr tablet Take 750 mg by mouth 2 times a day with meals. 0 Active naproxen (NAPROSYN) 500 mg tablet Take 500 mg by mouth 2 times a day with meals. 0 Active Active Problems Problem Noted Date Diagnosed Date Encounter for screening colonoscopy 07/01/2020 Social History Tobacco Use Types Packs/Day Years Used Date Smoking Tobacco: Never Smokeless Tobacco: Never Comments Unknown Sex and Gender Information Value Date Recorded Sex Assigned at Not on file Legal Sex Female 2:32 PM EDT Gender Identity Not on file Sexual Orientation Not on file Last Filed Vital Signs Vital Sign Reading Time Taken Comments Blood Pressure 130/54 07/01/2020 1:14 PM EDT Pulse 99 07/01/2020 1:14 PM EDT Temperature 36.2 ??C (97.1 ??F) 07/01/2020 1:14 PM ED T Respiratory Rate 18 07/01/2020 1:14 PM EDT Oxygen Saturation 100% 02/01/2017 10:00 AM EST Inhaled Oxygen Concentration - - Weight 102.1 kg (225 lb) 09/08/2020 2:36 PM EDT Height 172.7 cm (5' 8 ) 09/08/2020 2:36 PM EDT Body Mass Index 34.21 09/08/2020 2:36 PM EDT Plan of Treatment Health Maintenance Due Date Last Done Comments Cervical Cancer Screening 1968 Cologuard 1968 Colon Cancer Screening 1968 Colonoscopy 1968 FOBT / Fit Test 1968 HIV Screening 1968 HPV and Pap Smear 1968 Pap Smear 1968 Sigmoidoscopy 1968 Hepatitis B Vaccines (1 of 3 - 19+ 3-dose series) 07/27 Pneumococcal Vaccine: 50+ Years (1 of 1 - PCV) 019 Zoster Vaccines (1 of 2) 2018 Alcohol/Substance Use Screening 03/28/2024 Influenza Vaccine (Season Ended) 2024 DTaP,Tdap,and Td Vaccines (2 - Td or Tdap) 03/18/2030 03/18/2020 RSV Vaccine (60+ years old a nd patients) (1 - 1-dose 75+ series) 08/24/2043 Insurance [employer] [facility]/FREE C[employer] Care Teams Engineering Supplies Sales Relationship Specialty Start Date End Date Miah Emerson [address] [place] [id number] PCP - General Internal Medicine 12/29/16
--- OUTSIDE RECORDS SUMMARY | 2024-07-30 13:43 | XMS_ITS | Referral Summary ---
Author Organization [facility] Address [address] [place] [address] Care Team Providers Care Electrical Maintenance Worker Name Role Phone Miah Emerson Primary Care Provider [phone] Allergies Active Allergy Reactions Criticality Noted Date [...] 09/08/2020 2:36 PM EDT Plan of Treatment Not on file Insurance [facility] [employer]/FREE CARE Care Teams Electrical Maintenance Worker Relationship Specialty Start Date End Date Miah Emerson [address] [place] [id number] PCP - General Internal Medicine 12/29/16
--- OUTSIDE RECORDS SUMMARY | 2024-07-30 13:43 | XMS_ITS | Encounter Summary ---
Author Organization [employer] Address [address] [facility] 7t [place] [address] Care Team Providers Care Crutcher Helper Name Role Phone Ivet Chanel Primary Care Provider [phone] Name, Mukul SCHMID Primary Care Provider [phone] Lianna Uribe DO Primary Care Provider + [phone] Reason for Visit * Reason Onset Date Comments Call Back Request 06/14/2023 Encounter Details Date Type Department Care Team ([facility] st Contact Info) Description 06/14/2023 Telephone [facility] MEDICINE [address] [place], [place] [phone] Ivet Chanel FNP [address] [place], [place] [phone] Call Back Request Social History Tobacco Use Types Packs/Day Years Used Date Smoking Tobacco: Never Passive Smoke Exposure: Never Smokeless Tobacco: Never Alcohol Use Standard Drinks/Week Comments Not Currently 0 (1 standard drink = 0.6 oz pur e alcohol) Depression Answer Date Recorded Patient Health Questionnaire-9 Score 0 04/15/2023 Patient Health Questionnaire-9 Score 0 04/15/2023 Last PHQ-9: Questionnaire Data Not on file 0 04/15/2023 Housing Stability Answer Date Recorded What is your housing situation today? I have anibal meyer 05/18/[address] you li ve. Do you have problems with any of the following? None of the above 05/18/2023 Food Insecurity Answer Date Recorded Within the past 12 months, y ou worried that your food would run out before you got money to buy more: Never True 05/18/2023 Within the past 12 months,th e food you bought just didn't last and you didn't have enough money to get more: Never True Transportation Answer Date Recorded In the past 12 months, has l ack of transportation kept you from medical appts, meetings, work or from getting things needed for daily living? No 05/18/2023 Utilities Answer Date Recorded In the past 12 months, has t he electric, gas, oil or water company threatened to shut off services in your home? No 05/18/2023 Depression Answer Date Recorded Patient Health Questionnaire-2 Score 0 04/15/2023 Comments Unknown Sex and Gender Information Value Date Recorded Sex Assigned at Female 01/25/2022 10:27 AM EDT Legal Sex Female 10:27 AM EDT Gender Identity Female 01/25/2022 10:27 AM EDT Sexual Orientation Straight 01/25/2022 10 :27 AM EDT documented as of this encounter Miscellaneous Notes * Telephone Encounter - Lauren Barnhart RN - 06/16/2023 11:05 AM EDT T/C to patient. I let the patient know that Yanique put in a PA for Ozempic and we are waiting for the insurance company to approve it. Patient says she feels well and denies any symptoms related to her high blood sugar. I offered the patient to coem in for a walk-in appt or a telehealth appt and shedoesn't want to. She wants results of her foot xray. I told her I would message Yanique and we will ca ll her with results. This note by Bruce Ovalle RN, training with Lauren Barnhart * Telephone Encounter - Maico Mckee - 06/14/2023 2:25 PM EDT Tc from pt returning phone from telephone call attempted today from RN. documented in this encounter Plan of Treatment Not on file documented as of this encounter Visit Diagnoses Not on filedocumented in this encounter Additional Health Concerns Assessment Noted Time PHQ-9 Depression Total Score: 0 04/15/19 24 2:10 PM EST documented as of this encounter Care Teams Crutcher Helper Relationship Specialty Start Date End Date Ivet Chanel FNP [address] [place] [address] PCP - General Family Medicine 05/27/22 11/28/23 Name, MD Mukul [address] [place] [address] PCP - General Internal Medicine 11/29/23 12/06/23 Lianna Uribe DO [address] [place] [address] PCP - General Family Medicine 12/07/23 documented as of this encounter
--- OUTSIDE RECORDS SUMMARY | 2024-07-30 13:43 | XMS_ITS | Encounter Summary ---
Author Organization [employer] Address [address] [facility] 7t [place] [address] Care Team Providers Care Investigation Clerk Name Role Phone Ivet Chanel Primary Care Provider [phone] Name, Mukul SCHMID Primary Care Provider [phone] Lianna Uribe DO Primary Care Provider [phone] Reason for Visit * Reason Comments Med Refill Encounter Details Date Type Department Care Team (Late st Contact Info) Description 02/24/2023 Refill [facility] MEDICINE [address] [place], [place] [phone] Ivet Chanel FNP [address] [place], [place] [phone] Social History Tobacco Use Types Packs/Day Years Used Date Smoking Tobacco: Never Passive Smoke Exposure: Never Smokeless Tobacco: Never Alcohol Use Standard Drinks/Week Comments Not Currently 0 (1 standard drink = 0.6 oz pur e alcohol) Depression Answer Date Recorded Patient Health Questionnaire-9 Score 0 04/28/2022 Housing Stability Answer Date Recorded What is your housing situation today? I have anibal meyer 01/11/[address] you li ve. Do you have problems with any of the following? None of the above 01/11/2023 Food Insecurity Answer Date Recorded Within the past 12 months, y ou worried that your food would run out before you got money to buy more: Never True 01/11/2023 Within the past 12 months,th e food you bought just didn't last and you didn't have enough money to get more: Never True Transportation Answer Date Recorded In the past 12 months, has l ack of transportation kept you from medical appts, meetings, work or from getting things needed for daily living? No 01/11/2023 Utilities Answer Date Recorded In the past 12 months, has t he electric, gas, oil or water company threatened to shut off services in your home? No 01/11/2023 Depression Answer Date Recorded Patient Health Questionnaire-2 Score 0 04/28/2022 Comments Unknown Sex and Gender Information Value Date Recorded Sex Assigned at Female 01/25/2022 10:27 AM EDT Legal Sex Female 10:27 AM EDT Gender Identity Female 01/25/2022 10:27 AM EDT Sexual Orientation Straight 01/25/2022 10 :27 AM EDT documented as of this encounter Plan of Treatment Not on file documented as of this encounter Visit Diagnoses Not on filedocumented in this encounter Additional Health Concerns Assessment Noted Time PHQ-9 Depression Total Score: 0 04/28/19 23 10:03 AM EST documented as of this encounter Care Teams Investigation Clerk Relationship Specialty Start Date End Date Ivet Chanel FNP [address] [place] [phone] PCP - General Family Medicine 05/27/22 11/28/23 Mukul Camejo MD [address] [place] [address] PCP - General Internal Medicine 11/29/23 12/06/23 Lianna Uribe DO [address] [place] [address] PCP - General Family Medicine 12/07/23 documented as of this encounter
--- OUTSIDE RECORDS SUMMARY | 2024-07-30 13:43 | XMS_ITS | Encounter Summary ---
Author Organization [employer] Address [address] [facility] 7t [place] [address] Care Team Providers Care Research Geneticist Name Role Phone Chery Jimenes Primary Care Provider Ivet Cuenca Primary Care Provider [phone], Mukul SCHMID Primary Care Provider [phone] Lianna Uribe DO Primary Care Provider [phone] Encounter Details Date Type Department Care Team (Late st Contact Info) Description 03/16/2022 Orders Only [facility] MEDICINE [address] [place] [address] Chery Jimenes FNP Social History Tobacco Use Types Packs/Day Years Used Date Smoking Tobacco: Never Smokeless Tobacco: Never Alcohol Use Standard Drinks/Week Comments Not Currently 0 (1 standard drink = 0.6 oz pur e alcohol) Comments Unknown Sex and Gender Information Value Date Recorded Sex Assigned at Female 01/25/2022 10:27 AM EDT Legal Sex Female 10:27 AM EDT Gender Identity Female 01/25/2022 10:27 AM EDT Sexual Orientation Straight 01/25/2022 10 :27 AM EDT COVID-19 Exposure Response Date Recorded In the last 10 days, have yo u been in contact with someone who was confirmed or suspected to have Coronavirus/COVID-19? No / Unsure 03/03/2022 1:56 PM EST documented as of this encounter Plan of Treatment Not on file documented as of this encounter Visit Diagnoses Not on filedocumented in this encounter Care Teams Research Geneticist Relationship Specialty Start Date End Date Chery Jimenes FNP PCP - General Family Medicine 03/03/22 05/26/22 Ivet Chanel FNP [address] [place] [address] PCP - General Family Medicine 05/27/22 11/28/23 Mukul Camejo MD [address] [place], [place] [phone] PCP - General Internal Medicine 11/29/23 12/06/23 Lianna Uribe DO [address] [place] [address] PCP - General Family Medicine 12/07/23 documented as of this encounter
--- OUTSIDE RECORDS SUMMARY | 2024-07-30 13:43 | XMS_ITS | Encounter Summary ---
Author Organization [employer] Address [address] [facility] 7t [place] [address] Care Team Providers Care Cushion Gum Applicator Name Role Phone Ivet Chanel Primary Care Provider [phone] Name, Mukul SCHMID Primary Care Provider [phone] Lianna Uribe DO Primary Care Provider + [phone] Reason for Visit * Reason Onset Date Comments Medication Question 02/24/2023 Encounter Details Date Type Department Care Team ([facility] st Contact Info) Description 02/24/[address] [facility] MEDICINE [address] [place], [place] [phone] Ivet Chanel FNP [address] [place], [place] [phone] Medication Question Social History Tobacco Use Types Packs/Day Years [...] enough money to get more: Never True 10/ Transportation Answer Date Recorded In the past [...] encounter Miscellaneous Notes * Telephone Encounter - Nabeel Fleming RN - 03/01/2023 12:45 PM EST T/C to pt. For below message, pt. Already received her meds. Pt. Is all set. * Telephone Encounter - Jer Panchal - 02/24/2023 11:01 AM EST Tc from pt regarding Jardiance 10 mg pt stated medication was discussed during [facility] visit on 01/31/23. Any questions contact pt at [phone] documented in this encounter Plan of Treatment Not on file documented as of this encounter Visit Diagnoses Not on filedocumented in this encounter Additional Health Concerns Assessment Noted Time PHQ-9 Depression Total Score: 0 04/28/19 10:03 AM EST documented as of this encounter Care Teams Cushion Gum Applicator Relationship Specialty Start Date End Date Ivet Chanel FNP [address] [place] [address] PCP - General Family Medicine 05/27/22 11/28/23 Name, MD Mukul [address] [place] [address] PCP - General Internal Medicine 11/29/23 12/06/23 Lianna Uribe DO [address] [facility] [place] [address] PCP - General Family Medicine 12/07/23 documented as of this encounter
--- OUTSIDE RECORDS SUMMARY | 2024-07-30 13:44 | XMS_ITS | Clinical Summary ---
Author Organization [facility] Address [address] [place] [address] Care Team Providers Care Small Animal Caretaker Name Role Phone Unavailable Primary Care Provider Unavailabl e Source Comments PLEASE NOTE, if this patient is a minor, it may be UNLAWFUL to discuss sensitive information that is contained in these records (such as FAMILY PLANNING, MENTAL HEALTH or SUBSTANCE ABUSE) with the minor patient's parent or other person without the patient's specific authorization.[facility] Allergies Active Allergy Reactions Criticality Noted Date Comments Hydrochlorothiazide 09/10/2016 Latex, Natural Rubber 07/02/2020 Added based on information entered during case entry, please review and add reactions, type, and severity as needed Added based on information entered during case entry, please review and add reactions, type, and severity as needed Medications No known medications Active Problems No known active problems Encounters Date Type Department Care Team Description 06/13/2024 1:40 PM EDT Office Visit [address] [phone] Jessica Alcantar DDS Abfraction (Primary Dx) 06/06/2024 1:00 PM EDT Office Visit [address] [phone] Lianna Martínez Encounter for dental examination (Primary Dx) from Last 3 Months Immunizations Immunization Administration Dates Next Due Moderna COVID-19 Vaccine, re d cap blue label, 12+ Primary Series 02/04/2021,07/15/2020,06/17/2020 Social History Tobacco Use Types Packs/Day Years Used Date Smoking Tobacco: Never Assessed Social Connections Answer Date Recorded Connectedness 0 12/09/2023 Financial Resource Strain Answer Date R ecorded Financial Resource Strain 0 2020 Stress Answer Date Recorded Stress 0 06/17/2020 Physical Activity Answer Date Recorded Physical Activity 0 06/17/2020 Food Insecurity Answer Date Recorded Food 0 12/22/2023 Transportation Needs Answer Date Record ed Transportation 0 06/17/2020 Housing Stability Answer Date Recorded Housing 0 06/17/2020 Safety and Environment Answer Date Moshe rded Safety 0 06/17/2020 Utilities Answer Date Recorded Utilities 0 06/17/2020 Employment Answer Date Recorded Stress 0 12/09/2023 Comments Unknown Sex and Gender Information Value Date Recorded Sex Assigned at Not on file Legal Sex Female 5:33 AM PST Gender Identity Not on file Sexual Orientation Not on file Last Filed Vital Signs Vital Sign Reading Time Taken Comments Blood Pressure 110/75 06/06/2024 3:37 PM EDT Pulse 66 06/06/2024 3:37 PM EDT Temperature - - Respiratory Rate - - Oxygen Saturation - - Inhaled Oxygen Concentration - - Weight - - Height - - Body Mass Index - - Plan of Treatment Upcoming Encounters Date Type Department Care Team (Late st Contact Info) Description 12/07/2024 1:00 PM EDT Office Visit [facility] [address] [place] [phone] Lianna Martínez [address] [place] [address] Health Maintenance Due Date Last Done Comments Anxiety Screening 1968 Dental FMX/Pano 1968 HPV Screening 1968 Hepatitis C Screening 1968 Pap + HPV 1968 Tobacco Screening 1968 HIV Screening 08/24/1983 Imm-Hepatitis B (1 of 3 - 19 + 3-dose series) 08/24/1987 Cervical Cancer Screening [address] Colonography 2013 Colonoscopy 2013 Colorectal Cancer Screening 2013 FIT/gFOBT 2013 Fecal DNA 2013 Flexible Sigmoidoscopy 2013 Imm-Zoster, Recombinant (1 of 2) 2018 Breast Cancer Screening (Mammogram) 10/03/2023 10/02/2021, 07/19/2018 [id number] ( season) 2023 09/05/2023, 10/23/2021, 02/04/2021, Additional history exists Imm-Influenza (#1) 2023 Alcohol and Drug Screen 03/28/2024 Depression Annual Screen 03/28/2024 Hypertension Screening (#1) 06/06/2025 Dental BW 06/08/2025 06/06/2024, 09/2022, 08/20/2022 Dental Examination 06/08/2025 06/06/2024, 1 05/04/2022, 08/20/2022 Dental Perio Charting 06/08/2025 06/06/2024, 023 Dental Prophy 06/08/2025 06/06/2024, 09/2022, 08/20/2022 Diabetes Screening 10/06/2026 10/07/2023, 0 09/01/2022, 09/01/2022, Additional history exists Lipid Screening 09/02/2027 09/01/2022 Imm-DTaP/Tdap/Td (2 - Td or Tdap) 03/18/2030 020 Cervical Ablation/Cold-Knife Conization Discontinued Cervical Cryotherapy Discontinued Colposcopy Discontinued Endometrial Biopsy Discontinued Excision/Leep Discontinued HPV Genotyping Discontinued Vaginal Pap Discontinued Vulvoscopy Discontinued Procedures Procedure Name Priority Date/Time Associated Diagnosis Comments 5 B(V) RESIN-BASED COMPOSITE - ONE SURFACE POSTERIOR Routine 06/13/2024 1:40 PM EDT Abfraction CASE PRESENTATION SUBS DTL & EXTENSIVE TX PLN Routine 06/13/2024 1:40 PM EDT Abfraction PERIODIC ORAL EVALUATION ESTABLISHED PATIENT Routine 06/06/2024 1:00 PM EDT Encounter for dental examination DENTAL CASE MANAGEMENT - MOTIVATIONAL INTV Routine 06/06/2024 1:00 PM EDT Encounter for dental examination PROPHYLAXIS - ADULT Routine 06/06/2024 1 :00 PM EDT Encounter for dental examination COMP PERIODONTAL EVALUATION - NEW/EST PATIENT Routine 06/06/2024 1:00 PM EDT Encounter for dental examination BITEWINGS - FOUR RADIOGRAPHIC IMAGES Routine 06/06/2024 1:00 PM EDT Encounter for dental examination CARIES RISK ASSESSMENT & DOC FINDING HIGH RISK Routine 06/06/2024 1:00 PM EDT Encounter for dental examination NUTRITIONAL COUNSELING CONTROL OF DENTAL DISEASE Routine 06/06/2024 1:00 PM EDT Encounter for dental examination ORAL HYGIENE INSTRUCTIONS Routine 06/06/2024 1:00 PM EDT Encounter for dental examination ORAL CANCER SCREENING Routine 06/06/2024 1:00 PM EDT Encounter for dental examination CASE PRESENTATION SUBS DTL & EXTENSIVE TX PLN Routine 06/06/2024 1:00 PM EDT Encounter for dental examination from Last 3 Months Insurance [employer]ALTH SAF[employer]Y [place] MEDICAID DENTAL
--- OUTSIDE RECORDS SUMMARY | 2024-07-30 13:44 | XMS_ITS | Encounter Summary ---
Author Organization [employer] Address [address] [place] [address] 7t [place] [address] Care Team Providers Care Balloon Artist Name Role Phone Ivet Chanel Primary Care Provider [phone] Name, Mukul SCHMID Primary Care Provider [phone] Lianna Uribe DO Primary Care Provider + [phone] Reason for Visit * Reason Comments Med Refill Encounter Details Date Type Department Care Team (Late st Contact Info) Description 09/12/[address] [facility] MEDICINE [address] [place] [address] Ivet Chanel FNP [address] [place] [address] Type 2 diabetes mellitus with hyperglycemia, unspecified whether care home insulin use ([facility]) Social History Tobacco Use Types Packs/Day Years Used Date Smoking Tobacco: Never Passive Smoke Exposure: Never Smokeless Tobacco: Never Alcohol Use Standard Drinks/Week Comments Not Currently 0 (1 standard drink = 0.6 oz pur e alcohol) Depression Answer Date Recorded Patient Health Questionnaire-9 Score 0 04/28/2022 Depression Answer Date Recorded Patient Health Questionnaire-2 [...] suspected to have Coronavirus/COVID-19? No / Unsure 09/01/2022 9:08 AM EDT documented as of this encounter Plan of Treatment Not on file documented as of this encounter Visit Diagnoses Diagnosis Type 2 diabetes mellitus with hyperglycemia, unspecified whether care home insulin use ([facility]) documented in this encounter Additional Health Concerns Assessment Noted Time PHQ-9 Depression Total Score: 0 04/28/19 23 10:03 AM EST documented as of this encounter Care Teams Balloon Artist Relationship Specialty Start Date End Date Ivet Chanel FNP [address] [place] [address] PCP - General Family Medicine 05/27/22 11/28/23 Mukul Camejo MD [address] [place] [address] PCP - General Internal Medicine 11/29/23 12/06/23 Lianna Uribe DO [address] [place] [address] PCP - General Family Medicine 12/07/23 documented as of this encounter
--- OUTSIDE RECORDS SUMMARY | 2024-07-30 13:44 | XMS_ITS | Encounter Summary ---
Author Organization [employer] Address [address] [place] [address] [address] [place] [address] Care Team Providers Care Steam Press Tender Name Role Phone Ivet Chanel Primary Care Provider [phone] Name, Mukul SCHMID Primary Care Provider [phone] Lianna Uribe DO Primary Care Provider + [phone] Encounter Details Date Type Department Care Team (Late st Contact Info) Description 10/19/2022 Orders Only [facility] [address] [place] [address] Ivet Chanel FNP [address] [place] [address] Social History Tobacco Use Types Packs/Day Years [...] suspected to have Coronavirus/COVID-19? No / Unsure 10/01/2022 1:13 PM EDT documented as of this encounter Plan of Treatment Not on file documented as of this encounter Visit Diagnoses Not on filedocumented in this encounter Additional Health Concerns Assessment Noted Time PHQ-9 Depression Total Score: 0 04/28/19 23 10:03 AM EST documented as of this encounter Care Teams Steam Press Tender Relationship Specialty Start Date End Date Ivet Chanel FNP [address] [place] [address] PCP - General Family Medicine 05/27/22 11/28/23 Mukul Camejo MD [address] [place] [address] PCP - General Internal Medicine 11/29/23 12/06/23 Lianna Uribe DO [address] [place] [address] PCP - General Family Medicine 12/07/23 documented as of this encounter
--- OUTSIDE RECORDS SUMMARY | 2024-07-30 13:44 | XMS_ITS | Encounter Summary ---
Author Organization [employer] Address [address] [facility] [address] [place] [address] Care Team Providers Care Audit Intern Name Role Phone AlesiaLianna ellis Primary Care Provider [phone] Encounter Details Date Type Department Care Team (Latest Contact Info) Description 07/30/2024 Travel Social History Tobacco Use Types Packs/Day Years Used Date Smoking Tobacco: Never Passive Smoke Exposure: Never Smokeless Tobacco: Never Alcohol Use Standard Drinks/Week Comments Not Currently 0 (1 standard drink = 0.6 oz pur e alcohol) Depression Answer Date Recorded Patient Health Questionnaire-9 Score 0 07/30/2024 Patient Health Questionnaire-9 Score 0 07/30/2024 Last PHQ-9: Questionnaire Data Not on file 0 07/30/2024 Housing Stability Answer Date Recorded What is your housing situation today? I have anibal meyer 07/23/[address] you li ve. Do you have problems with any of the following? None of the above 07/23/2024 Food Insecurity Answer Date Recorded Within the past 12 months, y ou worried that your food would run out before you got money to buy more: Never True 07/23/2024 Within the past 12 months,th e food you bought just didn't last and you didn't have enough money to get more: Never True Transportation Answer Date Recorded In the past 12 months, has l ack of transportation kept you from medical appts, meetings, work or from getting things needed for daily living? No 07/23/2024 Utilities Answer Date Recorded In the past 12 months, has t he electric, gas, oil or water company threatened to shut off services in your home? No 07/23/2024 Depression Answer Date Recorded Patient Health Questionnaire-2 Score 0 07/30/2024 Internet Access Answer Date Recorded Internet Access Q1 Yes 07/23/2024 Internet Access Q2 Not on file 07/23/2024 Comments Unknown Sex and Gender Information Value [...] Noted Time PHQ-9 Depression Total Score: 0 07/31/19 25 11:13 AM EDT documented as of this encounter Care Teams Audit Intern Relationship Specialty Start Date End Date Lianna Uribe DO [address] [place] [address] PCP - General Family Medicine 12/07/23 documented as of this encounter
--- OUTSIDE RECORDS SUMMARY | 2024-07-30 13:44 | XMS_ITS | Encounter Summary ---
Author Organization [employer] Address [address] [place] [address] [address] [place] [address] Care Team Providers Care Package Checker Name Role Phone Ivet Chanel Primary Care Provider [phone] Name, Mukul SCHMID Primary Care Provider [phone] Lianna Uribe DO Primary Care Provider + [phone] Reason for Visit * Reason Onset Date Comments Appointment Confirmation 10/11/2022 Encounter Details Date Type Department Care Team ([facility] st Contact Info) Description 10/11/2022 Telephone [facility] [address] [place], [place] [phone] Ivet Chanel FNP [address] [place], [place] [phone] Appointment Confirmation Social History Tobacco Use Types Packs/Day Years [...] PM EDT documented as of this encounter Miscellaneous Notes * Telephone Encounter - Nabeel Fleming RN - 10/11/2022 3:29 PM EDT Pt. Wants to know about time and date of Nurse visit. Pt. Informed that her Nurse visit on 10/18/2022. Pt. Verbally agreed and understood. * Telephone Encounter - Jaisonstanley Benjamin Mckee - 10/11/2022 11:08 AM EDT Tc from pt requesting a call from a nurse in [facility] to r/s appt for BP Check on 10/21/2022 Please contact pt at [phone] documented in this encounter Plan of Treatment Not on file documented as of this encounter Visit Diagnoses Not on filedocumented in this encounter Additional Health Concerns Assessment Noted Time PHQ-9 Depression Total Score: 0 04/28/19 23 10:03 AM EST documented as of this encounter Care Teams Package Checker Relationship Specialty Start Date End Date Ivet Chanel FNP [address] [place] [address] PCP - General Family Medicine 05/27/22 11/28/23 Mukul Camejo MD [address] [place] [address] PCP - General Internal Medicine 11/29/23 12/06/23 Lianna Uribe DO [address] [place] [address] PCP - General Family Medicine 12/07/23 documented as of this encounter
--- OUTSIDE RECORDS SUMMARY | 2024-07-30 13:44 | XMS_ITS | Encounter Summary ---
Author Organization [employer] Address [address] [facility] [address]t [place] [address] Care Team Providers Care Web Application Tester Name Role Phone Ivet Chanel Primary Care Provider [phone] Name, Mukul SCHMID Primary Care Provider [phone] Lianna Uribe DO Primary Care Provider + [phone] Reason for Visit * Reason Onset Date Comments Med Refill 09/19/2023 Encounter Details Date Type Department Care Team (Late st Contact Info) Description 09/19/2023 Telephone [facility] [address] [place], [place] [phone] Ivet Chanel FNP [address] [place], [place] [phone] Med Refill Social History Tobacco Use Types Packs/Day Years [...] encounter Miscellaneous Notes * Telephone Encounter - Samantha Mora LPN - 09/19/2023 2:27 PM EDT Please review request below.Unclear if prescription prescribed by you * Telephone Encounter - Екатерина Pascal - 09/19/2023 2:15 PM EDT TC from pt requesting medication refill. Medications needing refill : Ozempic, 0.25 or 0.5 MG/DOSE, 2 MG/3ML solution pen-injector To be sent to: [facility] - [place], [place] - [address] [facility] documented in this encounter Plan of Treatment Not on file documented as of this encounter Visit Diagnoses Not on filedocumented in this encounter Additional Health Concerns Assessment Noted Time PHQ-9 Depression Total Score: 0 04/15/19 2:10 PM EST documented as of this encounter Care Teams Web Application Tester Relationship Specialty Start Date End Date Ivet Chanel FNP [address] [place] [address] PCP - General Family Medicine 05/27/22 11/28/23 Name, MD Mukul [address] [place] [address] PCP - General Internal Medicine 11/29/23 12/06/23 Lainna Uribe DO [address] [place] [address] PCP - General Family Medicine 12/07/23 documented as of this encounter
--- OUTSIDE RECORDS SUMMARY | 2024-07-30 13:44 | XMS_ITS | Encounter Summary ---
Author Organization [employer] Address [address] [facility] [address] [place] [address] Care Team Providers Care Scale Assembly Set Up Worker Name Role Phone Lianna Uribe DO Primary Care Provider + [phone] Reason for Visit * Reason Onset Date Comments Nurse Triage 03/19/2024 Encounter Details Date Type Department Care Team ([facility] st Contact Info) Description 03/19/2024 Telephone [facility] [address] [place], [place] [phone] Lianna Uribe DO [address] [place] [address] Nurse Triage Social History Tobacco Use Types Packs/Day Years [...] encounter Miscellaneous Notes * Telephone Encounter - Raegan Waterman LPN - 03/19/2024 8:31 AM EST Triage call returned to patient who reports that she has pain ans swelling in left tonsil. Onset satrurday has been taking kandi as preiously presscribed but no improvement to tonsil. Has been ableto take fluids and is requesting ABT to be called in. Protocol reviewed and patient verbalized undeerstanding. 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 ASK/PCP appt provided and Team messaged to review with PCP . Patient agrees to call and cancel ASK for 11:15am today if unable to attend appt. Reviewed with patient home care recommendations and reasons to call back. Pt verbalized understandingand agrees. Multiple (2) protocols were used on this call. Disposition for Call: See in Office or Video Visit Today Protocol Used: Sore Throat (Adult) Protocol-Based Disposition: See in Office or Video Visit Today Video visit not offered Positive Triage Question: * Patient wants to be seen * All higher-acuity triage questions were negative Care Advice Discussed: * Sore Throat * Soft Diet * Drink Plenty of Liquids * Pain and Fever Medicines * Reasons To Call Back - Sore throat is the main symptom and it lasts longer than 48 hours - Sore throat is mild but lasts longer than 4 days - Fever lasts longer than 3 days - You become worse Protocol Used: Medication Question Call (Adult) Protocol-Based Disposition: See in Office or Video Visit within 3 Days Positive Triage Question: * Prescription request for new medicine (not a refill) * All higher-acuity triage questions were negative * Telephone Encounter - William Rojas - 03/19/2024 8:08 AM EST Tc from pt reports left Tonsil Swollen / painful Duration 2 days documented in this encounter Plan of Treatment Not on file documented as of this encounter Visit Diagnoses Not on filedocumented in this encounter Additional Health Concerns Assessment Noted Time PHQ-9 Depression Total Score: 0 04/15/19 24 2:10 PM EST documented as of this encounter Care Teams Scale Assembly Set Up Worker Relationship Specialty Start Date End Date Lianna Uribe DO [address] [place] [id number] PCP - General Family Medicine 12/07/23 documented as of this encounter
--- OUTSIDE RECORDS SUMMARY | 2024-07-30 13:44 | XMS_ITS | Encounter Summary ---
Author Organization [employer] Address [address] [place] [address] [address] [place] [address] Care Team Providers Care Print Finisher Name Role Phone Lianna Uribe DO Primary Care Provider Reason for Referral * Consultation (Routine) - Authorized Specialty Diagnoses / Procedures Referred By Kyra christianson Referred To Contact Pharmacy Diagnoses Type 2 diabetes mellitus with hyperglycemia, unspecified whether halfway insulin use ([facility]) Essential hypertension Lianna Uribe DO [address] [place] [address] Phone: tel: fax: Referral ID Status Reason Start Date Expiration Date Visits Requested Visits Authorized [id number] Authorized Consult and Treat 07/30/2024 07/30/2025 6 6 * Imaging (Routine) - Authorized Specialty Diagnoses / Procedures Referred By Kyra christianson Referred To Contact Radiology Diagnoses Fatty liver Chronic bilateral low back pain with right-sided sciatica Procedures US Abdomen Complete Lianna Uribe DO [address] [place] [address] Phone: tel: fax: [address] Phone: tel: fax: Referral ID Status Reason Start Date Expiration Date V isits Requested Visits Authorized [id number] Authorized 07/30/2024 07/30/2025 1 1 * Imaging (Routine) - Authorized Specialty Diagnoses / Procedures Referred By Kyra t Referred To Contact Radiology Diagnoses Encounter for screening mammogram for malignant neoplasm of breast Procedures BI Mammogram Screening Tomosynthesis Bilateral Lianna Uribe DO [address] [place] [address] Phone: tel: fax: [address] Phone: tel: fax: Referral ID Status Reason Start Date Expiration Date V isits Requested Visits Authorized [id number] Authorized 07/30/2024 07/30/2025 1 1 * Consultation (Routine) - Pending Review Specialty Diagnoses / Procedures Referred By Kyra christianson Referred To Contact Gastroenterology Diagnoses Chronic constipation Abdominal bloating Lianna Uribe DO [address] [place] [address] Phone: tel: fax: Referral ID Status Reason Start Date Expiration Date Visits Requested Visits Authorized [id number] Pending Review Specialty Services Required 07/30/2024 07/30/2025 1 1 * Neurology (Routine) - Authorized Specialty Diagnoses / Procedures Referred By Kyra christianson Referred To Contact Diagnoses Chronic bilateral low back pain with right-sided sciatica Procedures Nerve conduction test Lianna Uribe DO [address] [place] [address] Phone: tel: fax: [address] Phone: tel: fax: Referral ID Status Reason Start Date Expiration Date V isits Requested Visits Authorized [id number] Authorized 07/30/2024 07/30/2025 1 1 * Neurology (Routine) - Authorized Specialty Diagnoses / Procedures Referred By Kyra christianson Referred To Contact Diagnoses Chronic bilateral low back pain with right-sided sciatica Procedures EMG Lianna Uribe DO [address] [place] [address] Phone: tel: fax: [address] Phone: tel: fax: Referral ID Status Reason Start Date Expiration Date V isits Requested Visits Authorized [id number] Authorized 07/30/2024 07/30/2025 1 1 Encounter Details Date Type Department Care Team (Late st Contact Info) Description 07/30/2024 11:15 AM EDT Office Visit [facility] [address] [place] [address] Lianna Uribe DO [address] [place] [address] Routine history and physical examination of adult (Primary Dx); Type 2 diabetes mellitus with hyperglycemia, unspecified whether salvage determiner insulin use ([facility]); Essential hypertension; Other hyperlipidemia; Fatty liver; Anemia, unspecified type; VICKIE (obstructive sleep apnea); Chronic GERD; Chronic constipation; Abdominal bloating; Chronic bilateral low back pain with right-sided sciatica; Hot flashes due to menopause; BMI 39.0-39.9,adult; Encounter for immunization; Encounter for screening mammogram for malignant neoplasm of breast; Dietary counseling; Exercise counseling Social History Tobacco Use Types Packs/Day Years [...] AM EDT documented as of this encounter Last Filed Vital Signs Vital Sign Reading Time Taken Comments Blood Pressure 134/90 07/30/2024 11:56 AM EDT Pulse 79 07/30/2024 11:11 AM EDT Temperature 36 ??C (96.8 ??F) 07/30/2024 11:11 AM EDT Respiratory Rate 20 07/30/2024 11:11 AM EDT Oxygen Saturation 97% 07/30/2024 11:11 AM EDT Inhaled Oxygen Concentration - - Weight 112 kg (246 lb 2 oz) 07/30/2024 11:11 AM EDT Height 168 cm (5' 6.14 ) 07/30/2024 11:11 AM EDT Body Mass Index 39.56 07/30/2024 11:11 AM EDT documented in this encounter Plan of Treatment Scheduled Orders Name Type Priority Associated Diagnoses Orde r Schedule T4, Free Lab Routine Routine history and physical examination of adult Type 2 diabetes mellitus with hyperglycemia, unspecified whether salvage determiner insulin use (CMS/HCC) Essential hypertension Other hyperlipidemia Fatty liver Anemia, unspecified type VICKIE (obstructive sleep apnea) Chronic GERD Chronic constipation BMI 39.0-39.9,adult Expected: 07/30/2024 (Approximate), Expires: 07/30/2025 Vitamin D, 25-Hydroxy, Total, Immunoassay Lab Routine Routine history and physical examination of adult Type 2 diabetes mellitus with hyperglycemia, unspecified whether salvage determiner insulin use (CMS/HCC) Essential hypertension Other hyperlipidemia Fatty liver Anemia, unspecified type VICKIE (obstructive sleep apnea) Chronic GERD Chronic constipation BMI 39.0-39.9,adult Expected: 07/30/2024 (Approximate), Expires: 07/30/2025 Lipid Panel, Standard Lab Routine Routine history and physical examination of adult Type 2 diabetes mellitus with hyperglycemia, unspecified whether halfway insulin use (CMS/HCC) Essential hypertension Other hyperlipidemia Fatty liver Anemia, unspecified type VICKIE (obstructive sleep apnea) Chronic GERD Chronic constipation BMI 39.0-39.9,adult Expected: 07/30/2024 (Approximate), Expires: 07/30/2025 TSH Lab Routine Routine history and physical examination of adult Type 2 diabetes mellitus with hyperglycemia, unspecified whether salvage determiner insulin use (CMS/HCC) Essential hypertension Other hyperlipidemia Fatty liver Anemia, unspecified type VICKIE (obstructive sleep apnea) Chronic GERD Chronic constipation BMI 39.0-39.9,adult Expected: 07/30/2024 (Approximate), Expires: 07/30/2025 Hepatic Function Panel Lab Routine Routine history and physical examination of adult Type 2 diabetes mellitus with hyperglycemia, unspecified whether salvage determiner insulin use (CMS/HCC) Essential hypertension Other hyperlipidemia Fatty liver Anemia, unspecified type VICKIE (obstructive sleep apnea) Chronic GERD Chronic constipation BMI 39.0-39.9,adult Expected: 07/30/2024 (Approximate), Expires: 07/30/2025 Basic Metabolic Panel Lab Routine Routine history and physical examination of adult Type 2 diabetes mellitus with hyperglycemia, unspecified whether salvage determiner insulin use (CMS/HCC) Essential hypertension Other hyperlipidemia Fatty liver Anemia, unspecified type VICKIE (obstructive sleep apnea) Chronic GERD Chronic constipation BMI 39.0-39.9,adult Expected: 07/30/2024 (Approximate), Expires: 07/30/2025 Albumin, Random Urine W/Creatinine Lab Routine Routine history and physical examination of adult Type 2 diabetes mellitus with hyperglycemia, unspecified whether salvage determiner insulin use (CMS/HCC) Essential hypertension Other hyperlipidemia Fatty liver Anemia, unspecified type VICKIE (obstructive sleep apnea) Chronic GERD Chronic constipation BMI 39.0-39.9,adult Expected: 07/30/2024 (Approximate), Expires: 07/30/2025 Hepatitis B surface antigen, EIA Lab Routine Routine history and physical examination of adult Type 2 diabetes mellitus with hyperglycemia, unspecified whether salvage determiner insulin use (CMS/HCC) Essential hypertension Other hyperlipidemia Fatty liver Anemia, unspecified type VICKIE (obstructive sleep apnea) Chronic GERD Chronic constipation BMI 39.0-39.9,adult Expected: 07/30/2024 (Approximate), Expires: 07/30/2025 Chlamydia/N. Gonorrhoeae RNA, TMA, Urogenitial Microbiology Routine Routine history and physical examination of adult Type 2 diabetes mellitus with hyperglycemia, unspecified whether salvage determiner insulin use (CMS/HCC) Essential hypertension Other hyperlipidemia Fatty liver Anemia, unspecified type VICKIE (obstructive sleep apnea) Chronic GERD Chronic constipation BMI 39.0-39.9,adult Ordered: 07/30/2024 HIV-1/2 Antigen and Antibodies, Fourth Generation, with Reflexes Lab Routine Routine history and physical examination of adult Type 2 diabetes mellitus with hyperglycemia, unspecified whether salvage determiner insulin use (CMS/HCC) Essential hypertension Other hyperlipidemia Fatty liver Anemia, unspecified type VICKIE (obstructive sleep apnea) Chronic GERD Chronic constipation BMI 39.0-39.9,adult Expected: 07/30/2024 (Approximate), Expires: 07/30/2025 Hepatitis C Antibody with Reflex to HCV, RNA, Quantitative, Real-Time PCR Lab Routine Routine history and physical examination of adult Type 2 diabetes mellitus with hyperglycemia, unspecified whether halfway insulin use (CMS/HCC) Essential hypertension Other hyperlipidemia Fatty liver Anemia, unspecified type VICKIE (obstructive sleep apnea) Chronic GERD Chronic constipation BMI 39.0-39.9,adult Expected: 07/30/2024, Expires: 07/30/2025 RPR (Monitor) with Reflex to??Titer Lab Routine Routine history and physical examination of adult Type 2 diabetes mellitus with hyperglycemia, unspecified whether halfway insulin use (CMS/HCC) Essential hypertension Other hyperlipidemia Fatty liver Anemia, unspecified type VICKIE (obstructive sleep apnea) Chronic GERD Chronic constipation BMI 39.0-39.9,adult Expected: 07/30/2024, Expires: 07/30/2025 Hepatitis B Surface Antibody, Qualitative Lab Routine Routine history and physical examination of adult Type 2 diabetes mellitus with hyperglycemia, unspecified whether halfway insulin use (CMS/HCC) Essential hypertension Other hyperlipidemia Fatty liver Anemia, unspecified type VICKIE (obstructive sleep apnea) Chronic GERD Chronic constipation BMI 39.0-39.9,adult Expected: 07/30/2024 (Approximate), Expires: 07/30/2025 Alpha-Fetoprotein, Tumor Marker Lab Routine Routine history and physical examination of adult Type 2 diabetes mellitus with hyperglycemia, unspecified whether halfway insulin use (CMS/HCC) Essential hypertension Other hyperlipidemia Fatty liver Anemia, unspecified type VICKIE (obstructive sleep apnea) Chronic GERD Chronic constipation BMI 39.0-39.9,adult Expected: 07/30/2024 (Approximate), Expires: 07/30/2025 Hepatitis A Antibody, Total Lab Routine Routine history and physical examination of adult Type 2 diabetes mellitus with hyperglycemia, unspecified whether halfway insulin use (CMS/HCC) Essential hypertension Other hyperlipidemia Fatty liver Anemia, unspecified type VICKIE (obstructive sleep apnea) Chronic GERD Chronic constipation BMI 39.0-39.9,adult Expected: 07/30/2024 (Approximate), Expires: 07/30/2025 Hepatitis B Core Antibody, Total Lab Routine Routine history and physical examination of adult Type 2 diabetes mellitus with hyperglycemia, unspecified whether halfway insulin use (CMS/HCC) Essential hypertension Other hyperlipidemia Fatty liver Anemia, unspecified type VICKIE (obstructive sleep apnea) Chronic GERD Chronic constipation BMI 39.0-39.9,adult Expected: 07/30/2024 (Approximate), Expires: 07/30/2025 EMG Neurology Routine Chronic bilateral low back pain with right-sided sciatica Expected: 07/30/2024 (Approximate), Expires: 07/30/2025 Nerve conduction test Neurology Routine Chronic bilateral low back pain with right-sided sciatica Expected: 07/30/2024 (Approximate), Expires: 07/30/2025 BI Mammogram Screening Tomosynthesis Bilateral Imaging Routine Encounter for screening mammogram for malignant neoplasm of breast Expected: 07/30/2024, Expires: 09/29/2025 US Abdomen Complete Imaging Routine Fatty liver Chronic bilateral low back pain with right-sided sciatica Expected: 07/30/2024, Expires: 07/30/2025 Vitamin B12 (Cobalamin) and Folate Panel, Serum Lab Routine Anemia, unspecified type Expected: 07/30/2024, Expires: 07/30/2025 Ferritin Lab Routine Anemia, unspecified type Expected: 07/30/2024, Expires: 07/30/2025 Iron And Total Iron Binding Capacity Lab Routine Anemia, unspecified type Expected: 07/30/2024, Expires: 07/30/2025 XR Lumbar Spine 2-3 Views Imaging Routine Chronic bilateral low back pain with right-sided sciatica Expected: 07/30/2024, Expires: 07/30/2025 Scheduled Referrals Name Type Priority Associated Diagnoses Order Schedule Referral to Gastroenterology Outpatient Referral Routine Chronic constipation Abdominal bloating Expected: 07/30/2024 (Approximate), Expires: 07/30/2025 Referral to Pharmacy CDTM Outpatient Referral Routine Type 2 diabetes mellitus with hyperglycemia, unspecified whether halfway insulin use (CMS/HCC) Essential hypertension Ordered: 07/30/2024 documented as of this encounter Procedures Procedure Name Priority Date/Time Associated Diagnosis Comments CBC Routine 07/30/2024 12:14 PM EDT Routine history and physical examination of adult Type 2 diabetes mellitus with hyperglycemia, unspecified whether salvage determiner insulin use (CMS/HCC) Essential hypertension Other hyperlipidemia Fatty liver Anemia, unspecified type VICKIE (obstructive sleep apnea) Chronic GERD Chronic constipation BMI 39.0-39.9,adult HEMOGLOBIN A1C Routine 07/30/2024 12:14 PM EDT Routine history and physical examination of adult Type 2 diabetes mellitus with hyperglycemia, unspecified whether salvage determiner insulin use (CMS/HCC) Essential hypertension Other hyperlipidemia Fatty liver Anemia, unspecified type VICKIE (obstructive sleep apnea) Chronic GERD Chronic constipation BMI 39.0-39.9,adult POCT GLYCATED HEMOGLOBIN, TOTAL Routine 07/30/2024 11:15 AM EDT Type 2 diabetes mellitus with hyperglycemia, unspecified whether halfway insulin use (CMS/HCC) POCT GLUCOSE Routine 07/30/2024 11:14 AM EDT Type 2 diabetes mellitus with hyperglycemia, unspecified whether halfway insulin use (CMS/HCC) documented in this encounter Results * (ABNORMAL) CBC (07/30/2024 12:14 PM EDT) White Blood Count 6.6 4.8 - 10.8 X10*3/uL [facility] Red Blood Count 4.56 4.20 - 5.50 X10*6/uL [facility] Hemoglobin 12.2 12.0 - 16.0 g/dl [facility] Hematocrit 38.6 37.0 - 47.0 % [facility] Mean Corpuscular Volume 84.6 80.0 - 98.0 fL [facility] Mean Corpuscular Hemoglobin 26.8(L) 27.0 - 33.0 pg [facility] Mean Corpuscular HGB Conc 31.6 31.0 - 35.0 g/dl [facility] Red Cell Distribution Width 13.8 11.0 - 16.0 % [facility] Platelet Count 340 160 - 400 X10*3/uL [facility] Mean Platelet Volume 9.9 9.4 - 12.3 fL [facility] NRBC Pct Auto 0.3(H) 0.0 - 0.2 /100WBC [facility] NRBC Abs Auto 0.020(H) 0.0 - 0.012 X10*3/uL [facility] Blood Venous blood specimen / Unknown 07/30/2024 12:14 PM EDT 07/30/2024 1:09 PM EDT us Lianna Uribe DO LAB BLOOD ORDERABLES Final R esult [facility] [address] [place] [address] [phone] * (ABNORMAL) Hemoglobin A1c (07/30/2024 12:14 PM EDT) Hemoglobin A1c 8.1(H) <6.0 % [facility] Comment:Hemoglobin A1C Refer ence Range Adults: 4.8 - 6.0 % Non diabetic: < 6.0 % Goal: < 7.0 %Additional Action Suggested: > 8.0 %Note: Hemoglobin A1c results are invalid for patients with abnormal amounts of HbF. Blood transfusions may impact the HbA1c concentration in the patient sample. Estimated Average Glucose 186 mg/dL [facility] Comment:eAG = Estimated ave rage glucose which is %A1C expressed asaverage glucose, using the formula of the A2G-LnunbhjDbarhce Glucose study (ADAG), Diabetes Care, Vol.31,#8,Oct. 2007 Blood Venous blood specimen / Unknown 07/30/2024 12:14 PM EDT 07/30/2024 1:09 PM EDT Lianna Uribe DO LAB BLOOD ORDERABLES Final R esult [facility] [address] [place] [phone] * (ABNORMAL) POCT HGB A1C (07/30/2024 11:15 AM EDT) Hemoglobin A1C 7.8(A) 4.0 - 6.0 % [employer] Lot # [id number] Lot# Expiration Date , Blood 07/30/2024 11:1 5 AM EDT Lianna Uribe DO POINT OF CARE TEST ENTER/KATARZYNA T ORDERABLES Final Result * POCT Glucose (07/30/2024 11:14 AM EDT) Glucose Blood, POC 177 60 - 200 mg/dL [employer] Lot # [id number] Lot# Expiration Date Blood Capillary blood specimen / Unknown 07/30/2024 11:14 AM EDT Lianna Uribe DO POINT OF CARE TEST ENTER/KATARZYNA T ORDERABLES Final Result documented in this encounter Visit Diagnoses Diagnosis Routine history and physical examination of adult- Primary Type 2 diabetes mellitus with hyperglycemia, unspecified whether salvage determiner insulin use (CMS/HCC) Essential hypertension Unspecified essential hypertension Other hyperlipidemia Fatty liver Other chronic nonalcoholic liver disease Anemia, unspecified type VICKIE (obstructive sleep apnea) Obstructive sleep apnea (adult) (pediatric) Chronic GERD Chronic constipation Unspecified constipation Abdominal bloating Flatulence, eructation, and gas pain Chronic bilateral low back pain with right-sided sciatica Hot flashes due to menopause BMI 39.0-39.9,adult Encounter for immunization Encounter for screening mammogram for malignant neoplasm of breast Dietary counseling Dietary surveillance and counseling Exercise counseling documented in this encounter Additional Health Concerns Assessment Noted Time PHQ-9 Depression Total Score: 0 07/31/19 25 11:13 AM EDT documented as of this encounter Care Teams Print Finisher Relationship Specialty Start Date End Date Lianna Uribe DO [address] [place] [id number] PCP - General Family Medicine 12/07/23 documented as of this encounter
--- OUTSIDE RECORDS SUMMARY | 2024-07-30 13:44 | XMS_ITS | Clinical Summary ---
Author Organization [employer] Address [address] [place] [address] [address] [place] [address] Care Team Providers Care Business Applications Developer Name Role Phone JojoLianna Primary Care Provider [phone] Allergies Active Allergy Reactions Criticality Noted Date Comments Diphenhydramine 05/02/2023 Hydrochlorothiazide Hives 09/10/2016 Latex Hives 07/02/2020 Pea 01/31/2023 Fish Oil 01/31/2023 Medications ipratropium (Atrovent) 0.03 % nasal spray Administer 2 sprays into affected nostril(s) every 12 (twelve) hours. 020 Active Blood Glucose Monitoring Suppl (FreeStyle Pengilly Lite) w/Device kit TEST BLOOD SUGAR TWICE DAILY 022 Active TRUEplus Lancets 33G misc TEST BLOOD SUGAR TWICE DAILY 023 Active albuterol (Ventolin HFA) 108 (90 Base) MCG/ACT inhaler INHALE 2 PUFFS BY MOUTH EVERY 4 TO 6 HOURS NEEDED 18 g 3 024 Active cholecalciferol (Vitamin D-3) 25 MCG tablet Take 1 tablet (25 mcg) by mouth Once per day. 90 tablet 3 025 2025 Active amLODIPine (Norvasc) 10 MG tablet TAKE 1 TABLET BY MOUTH EVERY DAY IN THE MORNING 90 tablet 1 025 Active atenolol (Tenormin) 50 MG tabletIndicatio ns:Benign hypertension TAKE 1 TABLET BY MOUTH EVERY DAY IN THE MORNING 90 tablet 1 025 Active glucose blood (FREESTYLE LITE) test strip Test blood sugar twice daily 100 strip 11 Active baclofen (Lioresal) 10 MG tablet Take 1 tablet (10 mg) by mouth if needed in the morning, at noon, and at bedtime for muscle spasms. 60 tablet 3 2025 Active docusate sodium (Colace) 100 MG capsule Take 1 capsule (100 mg) by mouth 2 times daily. 180 capsule 3 2025 Active polycarbophil (Fibercon) 625 MG tablet Take 1 tablet (625 mg) by mouth 2 times daily. 180 tablet 3 2025 Active polyethylene glycol, PEG, 3350 (MiraLax) 17 GM/SCOOP powder Take 17 g by mouth if needed each day (constipation). 527 g 3 2025 Active methylPREDNISol one (Medrol Dospak) 4 MG tablets Follow schedule on package instructions 21 tablet 2024 Active Tirzepatide (Mounjaro) 2.5 MG/0.5ML solution auto-injector Inject 2.5 mg under the skin 1 (one) time per week. 2 mL 3 Active lidocaine (Lidoderm) 5 % patch Apply 2 patches topically if needed each day for mild pain. Remove & discard patch within 12 hours or as directed by MD. 60 patch 3 Active fluticasone (Flonase) 50 MCG/ACT nasal spray Administer 1 spray into each nostril Once per day. Shake gently. Before first use, prime pump. After use, clean tip and replace cap. 48 g 3 2024 Active simethicone (Mylicon) 125 MG chewable tablet Chew 1 tablet (125 mg) every 6 (six) hours if needed for flatulence. 30 tablet 1 2025 Active omeprazole OTC (PriLOSEC OTC) 20 MG EC tablet Take 1 tablet (20 mg) by mouth before breakfast. Do not crush, chew, or split. 90 tablet 3 2025 Active Diclofenac Sodium 1 % gel Apply 2 g topically if needed in the morning, at noon, in the evening, and at bedtime (pain). 150 g 3 Active venlafaxine XR (Effexor XR) 37.5 MG 24 hr capsule Take 1 capsule (37.5 mg) by mouth Once per day. Do not crush or chew. 30 capsule 3 025 2025 Active atorvastatin (Lipitor) 10 MG tablet Take 1 tablet (10 mg) by mouth Once per day. 90 tablet 3 025 2025 Active cetirizine (ZyrTEC) 10 MG tablet Take 1 tablet (10 mg) by mouth Once per day. 90 tablet 3 025 2025 Active glipiZIDE (Glucotrol) 10 MG tabletIndicatio ns:Type 2 diabetes mellitus with hyperglycemia, unspecified whether terminal clerk insulin use ([facility]) Take 1 tablet (10 mg) by mouth before evening meal. 90 tablet 1 025 2025 Active naproxen (Naprosyn) 500 MG tablet Take 1 tablet (500 mg) by mouth if needed in the morning and at bedtime for mild pain. 30 tablet 1 025 2025 Active Diclofenac Sodium 1 % gel Apply topically every 8 (eight) hours. 019 2024 Discontinued(R eorder (will not trigger notification to Pharmacy)) ibuprofen 600 MG tablet TAKE 1 TABLET BY MOUTH THREE TIMES DAILY 90 tablet 023 2024 Discontinued FREESTYLE LITE test strip TEST BLOOD SUGAR TWICE DAILY 100 strip 024 2024 Discontinued(R eorder (will not trigger notification to Pharmacy)) fluticasone furoate (Arnuity Ellipta) 100 MCG/ACT inhaler Inhale 1 puff Once per day. Rinse mouth with water after use to reduce aftertaste and incidence of candidiasis. Do not swallow. 1 each 024 2024 Discontinued acetaminophen (Tylenol) 500 MG tablet Take 2 tablets (1,000 mg) by mouth every 6 (six) hours if needed for mild pain. 40 tablet 024 2024 Discontinued lidocaine (Lidoderm) 5 % patch APPLY 1 TO 2 PATCHES TOPICALLY TO SKIN, LEAVE ON FOR 12 HOURS AND OFF FOR 12 HOURS DIRECTED 30 patch 2 2024 Discontinued(R eorder (will not trigger notification to Pharmacy)) cyclobenzaprine (Flexeril) 10 MG tablet Take 10 mg by mouth if needed in the morning, at noon, and at bedtime for muscle spasms. 2024 Discontinued fluticasone (Flonase) 50 MCG/ACT nasal spray Administer 1 spray into each nostril Once per day. Shake gently. Before first use, prime pump. After use, clean tip and replace cap. 48 g 3 2024 Discontinued(R eorder (will not trigger notification to Pharmacy)) fexofenadine (Kirstin) 180 MG tablet Take 1 tablet (180 mg) by mouth Once per day. 90 tablet 3 2024 Discontinued(I neffective) Tirzepatide (Mounjaro) 2.5 MG/0.5ML solution auto-injector Inject 2.5 mg under the skin 1 (one) time per week. 2 mL 024 2024 Discontinued Tirzepatide (Mounjaro) 5 MG/0.5ML solution auto-injector Inject 5 mg under the skin 1 (one) time per week. USE AFTER 2.5mg rx 2 mL 3 2024 Discontinued glipiZIDE (Glucotrol) 10 MG tabletIndicatio ns:Type 2 diabetes mellitus with hyperglycemia, unspecified whether [place] [facility] use ([facility]) TAKE 1 TABLET BY MOUTH EVERY TWELVE HOURS 180 tablet 1 025 2024 Discontinued(R eorder (will not trigger notification to Pharmacy)) Active Problems Problem Noted Date Diagnosed Date BMI 39.0-39.9,adult 07/30/2024 Chronic low back pain 07/30/2024 Menopause 07/21/2023 VICKIE (obstructive sleep apnea) 04/30/2022 Assessment & Plan (04/30/2022 1:39 PM EST): Non compliant with therapy cannot tolerate Declines new referral Vitamin D deficiency 03/16/2022 Hyperlipidemia 02/25/2022 Fatty liver 02/25/2022 History of COVID-19 01/29/2020 Essential hypertension 12/03/2015 Assessment & Plan (08/16/2023 7:56 PM EDT): EKG is fairly normal today. Uncontrolled today likely due to not taking BP meds today + Acute illness + Afrin use. DC Afrin, rx sinusitis and take BP meds. No change in BP meds, needs to fur with PCP/RN in about 1mo Anemia 11/14/2015 Type 2 diabetes mellitus 06/05/2015 Assessment & Plan (07/21/2023 12:33 PM EDT): Follow up with pcp in the next 2 or 3 weeks regarding diabetes. Assessment & Plan (01/31/2023 12:22 PM EST): Follow up with pcp in the next 2 or 3 weeks regarding diabetes. Resolved Problems Problem Noted Date Diagnosed Date Resolved Date Cough in adult 08/16/2023 03/19/2024 Assessment & Plan (08/16/2023 7:57 PM EDT): Related to sinusitis, however she has underlying chronic cough since she had covid Order methacholine test to ro asthma/ PFT to ro COPD Start Fluticasone inh 100mg/d, continue albuterol prn FU with PCP Sore throat 08/16/2023 03/19/2024 Dislocation of jaw 01/31/2023 Assessment & Plan (01/31/2023 5:38 PM EST): Resolved. Consult with dentist at next appt. Acute maxillary sinusitis 02/25/2022 Assessment & Plan (08/16/2023 7:47 PM EDT): Rx z-pack +Flonase + Kirstin +tylenol prn Advised to use home made saline with warm water and 2 teaspoons of salt, dc Afrin Advised re vapor showers Advised to be out of work for at least 2d Wear mask for the next 48h, Vaginal irritation 06/04/2020 Calcaneal spur 12/03/2015 07/30/2024 Encounters Date Type Department Care Team Description 07/30/2024 11:15 AM EDT Office Visit [facility] [address] [place] [id number] Lianna Uribe DO Routine history and physical examination of adult (Primary Dx); Type 2 diabetes mellitus with hyperglycemia, unspecified whether [place] [facility] use ([facility]); Essential hypertension; Other hyperlipidemia; Fatty liver; Anemia, unspecified type; VICKIE (obstructive sleep apnea); Chronic GERD; Chronic constipation; Abdominal bloating; Chronic bilateral low back pain with right-sided sciatica; Hot flashes due to menopause; BMI 39.0-39.9,adult; Encounter for immunization; Encounter for screening mammogram for malignant neoplasm of breast; Dietary counseling; Exercise counseling 07/30/2024 Travel 07/23/2024 Patient Outreach [address] [address] Lianna Uribe DO Pre-visit Planning (SDOH screening negative and Tobacco screening negative) 07/02/[address] [facility] [address] [place] [address] Lianna Uribe DO 06/25/[address] [address] Lianna Uribe DO Benign hypertension 05/24/[address] [address] Lianna Uribe DO Recall Appt. 05/24/2024 Travel from Last 3 Months Immunizations Name Administration Dates Next Due HepB-CpG 10/18/2023,09/13/2023 Moderna Covid-19 Vaccine 12+ 10/23/2021,02/05/20 21,07/15/2020,06/17/2020 Pfizer Covid-19 Vaccine 12+ 09/05/2023 Pneumococcal Conjugate PCV 20 07/30/2024 Tdap 03/18/2020 Zoster, Recombinant 01/19/2022,11/16/2021 Family History Medical History Relation Name Comments Benign prostatic hyperplasia Father Diabetes type II Father Diabetes type II Maternal Grandfather Hypertension Maternal Grandfather Diabetes type II Maternal Grandmother Hypertension Maternal Grandmother Dementia Mother Stroke Paternal Grandfather Diabetes type II Paternal Grandmother Hypertension Paternal Grandmother Hypertension Son Relation Name Status Comments Father Maternal Grandfather Maternal Grandmother Mother Paternal Grandfather Paternal Grandmother Son Social History Tobacco Use Types Packs/Day Years Used Date Smoking Tobacco: Never Passive Smoke Exposure: Never Smokeless Tobacco: Never Tobacco Cessation:Counseling Given: Not Answered Alcohol Use Standard Drinks/Week Comments Not Currently 0 (1 standard drink = 0.6 oz pur e alcohol) Depression Answer Date Recorded Patient Health Questionnaire-9 Score 0 07/30/2024 Patient Health Questionnaire-9 Score 0 07/30/2024 Last PHQ-9: Questionnaire Data Not on file 0 07/30/2024 Housing Stability Answer Date Recorded What is your housing situation today? I have anibal meeyr 07/23/[address] you li [...] Orientation Straight 01/25/2022 10 :27 AM EDT Last Filed Vital Signs Vital Sign Reading [...] Mass Index 39.56 07/30/2024 11:11 AM EDT Plan of Treatment Health Maintenance Due Date Last Done Comments CT Colonography 1968 Colonoscopy 1968 Colorectal Cancer Screening 1968 FIT DNA/Cologuard 1968 FIT 1968 FOBT 1968 HIV Screening 1968 Sigmoidoscopy 1968 Diabetes: Foot Exam 1978 Hepatitis C Screening 1986 Hepatitis A Vaccines (1 of 2 - Risk 2-dose series) 08/24/1987 Pap Smear 1989 Cervical Cancer Screening 1998 HPV/Cotest 1998 Diabetes: Urine Protein Screening 09/02/2023 09/01/2022, 03/15/2022, 07/20/2021, Additional history exists Lipid Panel 09/02/2023 09/01/2022, 02/25, 07/20/2021 Mammogram 10/03/2023 10/02/2021, 03, 07/19/2018, Additional history exists COVID-19 Vaccine ( season) 2023 09/05/2023, 10/23/2021, 02/04/2021, Additional history exists Influenza Vaccine (#1) 2023 Diabetes: Hemoglobin A1C 10/30/2024 025, 07/30/2024, 10/07/2023, Additional history exists Eye Exam 02/01/2025 02/02/2024, 06/27, 07/25/2023, Additional history exists SDOH Screening 07/23/2025 07/23/2024 Alcohol/Substance Use Screening 07/30/2025 07/30/2024 Depression Screening 07/30/2025 07/30/2024, 07/31/19 Tobacco Screening 07/30/2025 07/30/2024 DTaP/Tdap/Td Vaccines (2 - Td or Tdap) 03/18/2030 03/18/2020 RSV Patients and Patients Aged 60 years or older (1 - 1-dose 75+ series) 08/24/2043 Zoster Vaccines Completed 01/19/2022, 11/16/2021 Hepatitis B Vaccines Completed 10/18/2023, 09/13/19 Pneumococcal Vaccine: 50+ Years Completed 07/30/2024 HIB Vaccines Aged Out No longer eligi ble based on patient's age to complete this topic HPV Vaccines Aged Out No longer eligi ble based on patient's age to complete this topic IPV Vaccines Aged Out No longer eligi ble based on patient's age to complete this topic Meningococcal Vaccine Aged Out No porsha jeanne eligible based on patient's age to complete this topic RSV under 20 months Aged Out No longe r eligible based on patient's age to complete this topic Rotavirus Vaccines Aged Out No longer eligible based on patient's age to complete this topic Procedures Procedure Name Priority Date/Time Associated Diagnosis Comments CBC Routine 07/30/2024 12:14 PM EDT Routine history and physical examination of adult Type 2 diabetes mellitus with hyperglycemia, unspecified whether [place] [facility] insulin use (CMS/HCC) Essential hypertension Other hyperlipidemia Fatty liver Anemia, unspecified type VICKIE (obstructive sleep apnea) Chronic GERD Chronic constipation BMI 39.0-39.9,adult HEMOGLOBIN A1C Routine 07/30/2024 12:14 PM EDT Routine history and physical examination of adult Type 2 diabetes mellitus with hyperglycemia, unspecified whether [place] insulin use (CMS/HCC) Essential hypertension Other hyperlipidemia Fatty liver Anemia, unspecified type VICKIE (obstructive sleep apnea) Chronic GERD Chronic constipation BMI 39.0-39.9,adult POCT GLYCATED HEMOGLOBIN, TOTAL Routine 07/30/2024 11:15 AM EDT Type 2 diabetes mellitus with hyperglycemia, unspecified whether [place] [facility] insulin use ([facility]) POCT GLUCOSE Routine 07/30/2024 11:14 AM EDT Type 2 diabetes mellitus with hyperglycemia, unspecified whether [place] [facility] insulin use ([facility]) ALBUMIN, RANDOM URINE W/CREATININE Routine 09/01/2022 10:11 AM EDT Type 2 diabetes mellitus with hyperglycemia, unspecified whether terminal clerk insulin use ([facility]) LIPID PANEL, STANDARD Routine 09/01/2022 10:11 AM EDT Type 2 diabetes mellitus with hyperglycemia, unspecified whether terminal clerk insulin use ([facility]) Primary hypertension MAMMOGRAM GENERIC Routine 10/02/2021 2:5 5 PM EDT from Last 3 Months or Most Recently Relevant to Health Maintenance Results * (ABNORMAL) CBC (07/30/2024 12:14 PM EDT) White Blood Count 6.6 4.8 - 10.8 X10*3/uL [facility] Red Blood Count 4.56 4.20 - 5.50 X10*6/uL [facility] Hemoglobin 12.2 12.0 - 16.0 g/dl [facility] Hematocrit 38.6 37.0 - 47.0 % [facility] Mean Corpuscular Volume 84.6 80.0 - 98.0 fL [facility] Mean Corpuscular Hemoglobin 26.8(L) 27.0 - 33.0 pg [facility] Mean Corpuscular HGB Conc 31.6 31.0 - 35.0 g/dl [facility] Red Cell Distribution Width 13.8 11.0 - 16.0 % [facility] Platelet Count 340 160 - 400 X10*3/uL [facility] Mean Platelet Volume 9.9 9.4 - 12.3 fL [facility] NRBC Pct Auto 0.3(H) 0.0 - 0.2 /100WBC [facility] NRBC Abs Auto 0.020(H) 0.0 - 0.012 X10*3/uL [facility] Blood Venous blood specimen / Unknown 07/30/2024 12:14 PM EDT 07/30/2024 1:09 PM EDT Lianna Jojo DO LAB BLOOD ORDERABLES Final R esult Performing Organization Address City/[facility]/ZIP Co de Phone Number [facility] [address] [place] [phone] * (ABNORMAL) Hemoglobin A1c (07/30/2024 12:14 PM EDT) Hemoglobin A1c 8.1(H) <6.0 % [facility] Comment:Hemoglobin A1C Refer ence Range Adults: 4.8 - 6.0 % Non diabetic: < 6.0 % Goal: < 7.0 %Additional Action Suggested: > 8.0 %Note: Hemoglobin A1c results are invalid for patients with abnormal amounts of HbF. Blood transfusions may impact the HbA1c concentration in the patient sample. Estimated Average Glucose 186 mg/dL [facility] Comment:eAG = Estimated ave rage glucose which is %A1C expressed asaverage glucose, using the formula of the U8X-HxuawgyYbxirio Glucose study (ADAG), Diabetes Care, Vol.31,#8,Aug. 2007 Blood Venous blood specimen / Unknown 07/30/2024 12:14 PM EDT 07/30/2024 1:09 PM EDT Lianna Uribe DO LAB BLOOD ORDERABLES Final R esult [facility] [address] [place] [phone] * (ABNORMAL) POCT HGB A1C (07/30/2024 11:15 AM EDT) Hemoglobin A1C 7.8(A) 4.0 - 6.0 % [employer] Media Lot # [id number] Lot# Expiration Date [id number] Blood 07/30/2024 11:1 5 AM EDT Lianna Uribe DO POINT OF CARE TEST ENTER/KATARZYNA T ORDERABLES Final Result * POCT Glucose (07/30/2024 11:14 AM EDT) Glucose Blood, POC 177 60 - 200 mg/dL [employer] Media Lot # [id number] Lot# Expiration Date [id number] Blood Capillary blood specimen / Unknown 07/30/2024 11:14 AM EDT Lianna Uribe DO POINT OF CARE TEST ENTER/KATARZYNA T ORDERABLES Final Result * Albumin, Random Urine W/Creatinine (09/01/2022 10:11 AM EDT) Creatinine, Random Urine 146 20 - 275 mg/dL [facility] Albumin, Urine 0.4 See Note: mg/dL [facility] Comment: Reference Range: Reference Range Not established Albumin/Creatinin e Ratio, Random Urine 3 <30 mcg/mg creat [facility] Comment: The ADA defines abnormalities in albumin excretion as follows: Albuminuria Category ?Result (mcg/mg creatinine) Normal to Mildly increased ?? <30 Moderately increased ? 30-299 Severely increased ? > OR = 300 The ADA recommends that at least two of three specimens collected within a 3-6 month period be abnormal before considering a patient to be within a diagnostic category. 09/01/2022 10:1 1 AM EDT 09/01/2022 10:12 AM EDT Narrative [facility] - 09/01/2022 8:42 PM EDT FASTING:YES FASTING: YES Ivet Chanel CHIEF CARDIOPULMONARY TECHNOLOGIST LAB URINE ORDERABLES Final Resu lt [facility] [address], [place] [address] [employer] [facility] [address] [place] [phone] * (ABNORMAL) Lipid Panel, Standard (09/01/2022 10:11 AM EDT) Cholesterol, Total 197 <200 mg/dL [employer] [facility] HDL Cholesterol 48(L) > OR = 50 mg/dL [employer] [facility] Triglycerides 172(H) <150 mg/dL [employer] [facility] LDL Cholesterol 120(H) mg/dL (calc) [employer] [facility] Comment: Reference range: <100 Desirable range <100 mg/dL for primary prevention; ?? <70 mg/dL for patients with CHD or diabetic patients with > or = 2 CHD risk factors. LDL-C is now calculated using the Tyler calculation, which is a validated novel method providing better accuracy than the Friedewald equation in the estimation of LDL-C. Kam SS et al. LANG. 2013;310(19): 9575-5963 (http://education.[employer]/faq/JBC895) Chol/HDLC Ratio 4.1 <5.0 (calc) [employer] [facility] Non-HDL Cholesterol 149(H) <130 mg/dL (calc) [employer] [facility] Comment: For patients with diabetes plus 1 major ASCVD risk factor, treating to a non-HDL-C goal of <100 mg/dL (LDL-C of <70 mg/dL) is considered a therapeutic option. Blood Venous blood specimen / Unknown 09/01/2022 10:11 AM EDT 09/01/2022 10:12 AM EDT Narrative [facility] - 09/01/2022 8:42 PM EDT FASTING:YES FASTING: YES us Ivet Chanel CHIEF CARDIOPULMONARY TECHNOLOGIST LAB BLOOD ORDERABLES Final Resu lt [facility] [address], [place] [address] [employer] [facility] [address] [place] [phone] * Mammography Report 1 (10/02/2021 2:55 PM EDT) Anatomical Region Laterality Modality Breast Bilateral Mammography 10/02/2021 2:55 PM EDT Narrative 10/05/2021 4:57 PM EDT Refer to the Notes tab for result details [facility] Procedure: Mammography Report 1 Procedure Note Provider, MD Geno - 06/20/2022 Refer to the Notes tab for result details [facility] Procedure: Mammography Report 1 Lucrecia Cornell NP IMG BI PROCEDURES Final Result from Last 3 Months or Most Recently Relevant to Health Maintenance Insurance [facility] F[facility] Care Teams Business Applications Developer Relationship Specialty Start Date End Date Lianna Uribe DO [address] [place] [address] PCP - General Family Medicine 12/07/23
--- OUTSIDE RECORDS SUMMARY | 2024-07-30 13:44 | XMS_ITS | Encounter Summary ---
Author Organization [employer] Address [address] [facility] [address] [place] [address] Care Team Providers Care Cancer Program Coordinator Name Role Phone vIet Chanel Primary Care Provider [phone] Name, Mukul SCHMID Primary Care Provider [phone] Lianna Uribe DO Primary Care Provider [phone] Encounter Details Date Type Department Care Team (Late st Contact Info) Description 10/12/2023 Orders Only [facility] [address] [place] [address] Ivet Chanel FNP [address] [facility] [place] [address] Type 2 diabetes mellitus with hyperglycemia (CMS/HCC) Social History Tobacco Use Types Packs/Day Years [...] Diagnoses Diagnosis Type 2 diabetes mellitus with hyperglycemia (CMS/HCC) documented in this encounter Additional Health Concerns Assessment Noted Time PHQ-9 Depression Total Score: 0 04/15/19 24 2:10 PM EST documented as of this encounter Care Teams Cancer Program Coordinator Relationship Specialty Start Date End Date Ivet Chanel FNP [address] [place] [address] PCP - General Family Medicine 05/27/22 11/28/23 [place], [place] [address] PCP - General Internal Medicine 11/29/23 12/06/23 Lianna Uribe DO [address] [place] [address] PCP - General Family Medicine 12/07/23 documented as of this encounter
[2024-07-30 13:59] LABS: Creatinine Urine 224.22 mg/dL; Microalbum/Creatinine Ratio Ur 5.3 ug/mg cr (<30)
[2024-07-30 14:08] LABS: Alanine Aminotransferase 24 U/L (0-31); Albumin Level 4.3 g/dL (3.5-5.0); Alkaline Phosphatase 77 U/L (39-117); Anion Gap 11 (12-20); Aspartate Amino Transferase 23 U/L (5-31); Bilirubin Direct < 0.2 mg/dL (0.0-0.5); Bilirubin Total 0.2 mg/dL (0.0-1.0); Blood Urea Nitrogen 13 mg/dL (9-16); Calcium 9.3 mg/dL (8.4-10.2); Carbon Dioxide 29 mmol/L (22-29); Chloride 106 mmol/L (96-108); Cholesterol 217 mg/dL (<200); Estimated Glomerular Filt Rate > 60; Glucose Random 136 mg/dL (60-115); Iron 55 mcg/dL (30-160); Percent Iron Saturation 17 % (15-50); Potassium 4.1 mmol/L (3.3-5.1); Sodium 142 mmol/L (135-145); Total Iron Binding Capacity 315 mcg/dL (228-428); Total Protein 7.7 g/dL (6.5-8.0); Triglycerides 117 mg/dL (<150); Unsaturated Iron Binding 260 ug/dL
[2024-07-30 14:24] LABS: HBS Num1 589.96 mIU/mL (0-7.99); HBc Num1 0.07 S/CO (0.00-0.79); HBsAGNum1 0.28 S/CO (0.00-0.99); HIV AB/AG Nonreactive (Nonreactive); HIV Num 1 0.08 S/CO (0.00-0.99); Hepatitis B Core Antibody Nonreactive (Nonreactive); Hepatitis B Surface Antigen Negative (Negative); ~HepC Num1 0.07 S/CO (0.00-0.79); ~Hepatitis B Surface Antibody REACTIVE (Nonreactive); ~Hepatitis C Antibody Nonreactive (Nonreactive)
[2024-07-30 14:35] LABS: Ferritin 62 ng/mL (10-250); Free T4 (Free Thyroxine) 0.81 ng/dL (0.71-1.85); HDL Cholesterol 50 mg/dL (>40); LDL Cholesterol Calculated 144 mg/dL (<100); Thyroid Stimulating Hormone 0.42 uIU/mL (0.32-4.0); Vitamin D 25-OH Total 27.4 ng/mL (>30)
[2024-07-30 14:36] LABS: Folate 11.7 ng/mL (> or = 4.0); Vitamin B12 464 pg/mL (200-900)
[2024-07-30 14:56] LABS: CT PCR NOT DETECTED (Not Detect.); NG PCR NOT DETECTED (Not Detect.)
[2024-07-31 10:04] LABS: RPR Rapid Plasma Reagin NON-REACTIVE (NON-REACTIVE)
[2024-08-01 11:54] LABS: Alpha Fetoprotein 2.1 ng/mL
[2024-08-02 03:56] LABS: Hepatitis A Antibody IgG REACTIVE (Nonreactive); ~Hepatitis A Antibody IgG 10.01 S/CO (0.00-0.99)
== END 2024-07-30 12:12 | disposition home or self-care (01) ==
LOC: HO.HHCL 12:11
PROVIDERS: Visit Provider Family Medicine
DX: Z00.00 Encounter for general adult medical examination without abnormal findings (principal); E11.65 Type 2 diabetes mellitus with hyperglycemia; I10 Essential (primary) hypertension; E78.49 Other hyperlipidemia; K76.0 Fatty (change of) liver, not elsewhere classified; D64.9 Anemia, unspecified; G47.33 Obstructive sleep apnea (adult) (pediatric); K21.9 Gastro-esophageal reflux disease without esophagitis; K59.09 Other constipation; Z68.39 Body mass index [BMI] 39.0-39.9, adult
CPT/HCPCS: 80048; 80061; 80076; 82043; 82105; 82306; 82570; 82607; 82728; 82746; 83036; 83540; 84439; 84443; 85027; 86592; 86704; 86706; 86708; 86803; 87340; 87389; 87491; 87591

== ENCOUNTER 2024-08-14 07:45 | Outpatient (REF) | payer MEDICAID, OTHER, SELFPAY | END 2024-08-14 07:46 | disposition home or self-care (01) | LOC: HO.MAMMO 07:45 | PROVIDERS: PCP Family Medicine; Visit Provider Family Medicine | DX: Z12.31 Encounter for screening mammogram for malignant neoplasm of breast (principal) | CPT/HCPCS: 77063; 77067 ==

== ENCOUNTER → 2024-08-14 08:15 | Outpatient (BNV) | payer SELFPAY | PROVIDERS: PCP Family Medicine; Visit Provider Internal Medicine | DX: Z12.31 Encounter for screening mammogram for malignant neoplasm of breast (principal) | CPT/HCPCS: 77063; 77067 ==

== ENCOUNTER 2024-09-13 07:46 | Outpatient (REF) | payer SELFPAY ==
--- NOTE | ~2024-09-13 | XR_ITS ---
EXAMINATION: XR LUMBOSACRAL SPINE CLINICAL INFORMATION: worsening LBP x 2 mos COMPARISON: 02/25/2020. TECHNIQUE: Three views of the lumbosacral spine. FINDINGS: No significant scoliosis. Normal lordosis. No fracture, compression deformity, or suspicious bone lesion. Moderate to severe disc degeneration is noted focally at L5-S1. The remainder of the intervertebral discs are relatively preserved. Normal facet alignment. Hypertrophic degenerative facet changes are present L4-S1. The SI joints and sacrum appear normal. There are Essure implants within the pelvis. Small popcorn type calcifications likely represent generated uterine fibroids. No soft tissue abnormalities. XR/XR lumbar spine 2-3V IMPRESSION: 1. Slightly worsening moderate spondylosis focally at L5-S1. Electronically signed by: Erlin Mike MD 09/13/2024 08:20 AM EDT
--- NOTE | ~2024-09-13 | US_ITS ---
CLINICAL HISTORY: fatty liver f u US abdomen complete with duplex and color Doppler Comparison: None Findings: The visualized pancreas, aorta, and inferior vena cava are unremarkable. Mild hepatomegalywith slight increased echotexture. Right lobe 18.0 cm length. No focal hepatic masses. Common duct 5.0 mm diameter. Physiologic distention of the gallbladder. No gallstones or sludge. No gallbladder wall thickening. No pericholecystic fluid. No sonographic Castanon sign. Main portal vein antegrade. Right kidney normal size, 12.5 cm in length. Normal cortical width and echotexture. No solid or cystic renal masses. No nephrolithiasis or hydronephrosis. Left kidney normal, 11.3 cm in length. Normal cortical width and echotexture. No solid or cystic renal masses. No nephrolithiasis or hydronephrosis. Spleen measures 8.4 cm. No splenic masses. No ascites. No lymphadenopathy. Impression: 1. Mild hepatomegaly. Slight increased hepatic echotexture reflecting hepatic steatosis or diffuse hepatocellular disease. This document has been electronically signed by: Parker Calero MD on 09/13/2024 10:19:20
--- OUTSIDE RECORDS SUMMARY | 2024-09-13 07:50 | XMS_ITS | Clinical Summary ---
Author Organization [facility] Address [address] [place] [address] Care Team Providers Care Snuff Blender Name Role Phone Miah Emerson Primary Care Provider Allergies Active Allergy Reactions Criticality Noted Date [...] Diagnosed Date Encounter for screening colonoscopy 07/01/2020 Encounters Date Type Department Care Team Description 08/24/2024 Transcribe Orders [facility] [address] [place] [address] Lianna Uribe Chronic constipation (Primary Dx); Abdominal bloating from Last 3 Months Social History Tobacco Use Types Packs/Day Years [...] 99 07/01/2020 1:14 PM EDT Temperature 36.2 C (97.1 F) 07/01/2020 1:14 PM EDT Respiratory Rate 18 07/01/2020 1:14 PM EDT Oxygen Saturation 100% 02/01/2017 10:00 AM EST Inhaled Oxygen Concentration - - Weight 102.1 kg (225 lb) 09/08/2020 2:36 PM EDT Height 172.7 cm (5' 8 ) 09/08/2020 2:36 PM EDT Body Mass Index 34.21 09/08/2020 2:36 PM EDT Plan of Treatment Health Maintenance Due Date Last Done Comments Cervical Cancer Screening 1968 Cologuard 1968 Colonoscopy 1968 HPV and Pap Smear 1968 Pap Smear 1968 Sigmoidoscopy 1968 Hepatitis B Vaccines (1 of 3 - 19+ 3-dose series) 08/24/1987 COVID-19 Vaccine (2023-2 5 season) 2023 09/05/2023, 10/23/2021, 02/04/2021, Additional history exists Alcohol/Substance Use Screening 03/28/2024 Influenza Vaccine (Season Ended) 2024 Colon Cancer Screening 07/30/2025 FOBT / Fit Test 07/30/2025 07/30/2024 DTaP,Tdap,and Td Vaccines (2 - Td or Tdap) 03/18/2030 03/18/2020 RSV Vaccine (60+ years old a nd patients) (1 - 1-dose 75+ series) 08/24/2043 Mammogram Discontinued 07/19/2018 Zoster Vaccines Completed 01/19/2022, 11/16/2021 HIV Screening Completed 07/30/2024, 07/30/2024 Pneumococcal Vaccine: 50+ Years Completed 5 Insurance [employer] HSNO/FREE CARE Care Teams Snuff Blender Relationship Specialty Start Date End Date Miah Emerson [address] [place] [phone] PCP - General Internal Medicine 12/29/16
== END 2024-09-13 07:47 | disposition home or self-care (01) ==
LOC: HO.US 07:46
PROVIDERS: PCP Family Medicine; Visit Provider Family Medicine
DX: K76.0 Fatty (change of) liver, not elsewhere classified (principal); G89.29 Other chronic pain; M54.41 Lumbago with sciatica, right side
CPT/HCPCS: 72100; 76700

== ENCOUNTER → 2024-09-13 07:47 | Outpatient (BNV) | payer SELFPAY | PROVIDERS: PCP Family Medicine; Visit Provider Radiology Diagnostic Radiology | DX: K76.0 Fatty (change of) liver, not elsewhere classified (principal); M47.816 Spondylosis without myelopathy or radiculopathy, lumbar region | CPT/HCPCS: 72100; 76700 ==

== ENCOUNTER 2024-12-25 11:20 | Outpatient (REF) | payer OTHER, SELFPAY ==
--- OUTSIDE RECORDS SUMMARY | 2024-12-25 12:49 | XMS_ITS | Encounter Summary ---
Author Organization [employer] Address [address] [place] [address] 7t [place] [address] Care Team Providers Care Painter Helper Name Role Phone AudraLianna caballero Primary Care Provider + [phone] Tabatha Bergman PharmD Unavailable [phone] Encounter Details Date Type Department Care Team (Latest Contact Info) Description 12/25/2024 Travel Social History Tobacco Use Types Packs/Day [...] as of this encounter Plan of Treatment Upcoming Encounters Date Type Department Care Team (Late st Contact Info) Description 01/22/2025 11:00 AM EDT Medication Management [facility] MEDICINE [address] [place] [address] Tabatha Bergman PharmD [address] [place] [address] documented as of this encounter Visit Diagnoses Not on filedocumented in this encounter Additional Health Concerns Assessment Noted Time PHQ-9 Depression Total Score: 0 07/31/19 11:13 AM EDT documented as of this encounter Care Teams Painter Helper Relationship Specialty Start Date End Date Lianna Uribe DO [address] [place] [address] PCP - General Family Medicine 12/07/23 Tabatha Bergman PharmLynnette [address] [place] [phone] Pharmacist Pharmacy 11/27/24 documented as of this encounter
--- OUTSIDE RECORDS SUMMARY | 2024-12-25 12:49 | XMS_ITS | Clinical Summary ---
Author Organization [facility] Address [address] [place] [address] Care Team Providers Care Cork Cutter Name Role Phone Miah Emerson Primary Care Provider [phone] Allergies Active Allergy Reactions Criticality Noted Date [...] Encounters Date Type Department Care Team Description 12/20/2024 Transcribe Orders [facility] Physician Referral Services [address] [place] [address] Name, Mukul Chronic low back pain with right-sided sciatica, unspecified back pain laterality (Primary Dx) from Last 3 Months Social History Tobacco Use Types Packs/Day Years Used Date Smoking Tobacco: Never Smokeless Tobacco: Never Comments Unknown Sex and Gender Information Value Date Recorded Sex Assigned at Unknown 12/21/2024 9:08 AM EDT Legal Sex Female 2:32 PM EDT Gender [...] 09/08/2020 2:36 PM EDT Plan of Treatment Upcoming Encounters Date Type Department Care Team (Late st Contact Info) Description 12/26/2024 3:30 PM EDT Office Visit [facility] A [address] [place] [address] Betsy Reddy NP 119 [facility] [place] [address] Health Maintenance Due Date Last Done Comments Cervical Cancer Screening 1968 Cologuard 1968 Colonoscopy 1968 HPV and Pap Smear 1968 Pap Smear 1968 Sigmoidoscopy 1968 Mammogram 07/19/2020 07/19/2018 Alcohol/Substance Use Screening 03/28/2024 Depression Screening and Follow-Up 03/28/2024 Social Drivers of Health Mehnaz ual Screening 03/28/2024 COVID-19 Vaccine (6 - 2024-2 6 season) 2024 09/05/2023, 10/23/2021, 02/04/2021, Additional history exists Influenza Vaccine (#1) 2024 Colon Cancer Screening 07/30/2025 FOBT / Fit Test 07/30/2025 07/30/2024 DTaP,Tdap,and Td Vaccines (2 - Td or Tdap) 03/18/2030 03/18/2020 RSV Vaccine (60+ years old a nd patients) (1 - 1-dose 75+ series) 08/24/2043 Zoster Vaccines Completed 01/19/2022, 11/16/2021 Hepatitis B Vaccines Completed 10/18/2023, 09/13/19 HIV Screening Completed 07/30/2024, 07/30/2024 Hepatitis C Screening Completed 07/30/2024 Pneumococcal Vaccine: 50+ Years Completed Insurance [address] [address] HS/FREE CARE Care Teams Cork Cutter Relationship Specialty Start Date End Date Miah Emerson [address] [place] [phone] PCP - General Internal Medicine 12/29/16
--- OUTSIDE RECORDS SUMMARY | 2024-12-25 12:49 | XMS_ITS | Encounter Summary ---
Author Organization [employer] Address [address] [place] [address] 7t [place] [address] Care Team Providers Care Apron Man Name Role Phone Ivet Chanel Primary Care Provider [phone] Mukul Camejo MD Primary Care Provider [phone] Lianna Uribe DO Primary Care Provider [phone] Tabatha Bergman PharmD Unavailable Reason for Visit * Reason Comments Med Refill Encounter Details Date Type Department Care Team (Late st Contact Info) Description 09/12/2022 Refill [facility] MEDICINE [address] [place], [place] [phone] Ivet Chanel FNP [address] [place] [address] Type 2 diabetes mellitus with hyperglycemia, unspecified whether terminal makeup operator insulin use ([facility]) Social History Tobacco Use Types Packs/Day Years [...] Description 01/22/2025 11:00 AM EDT Medication Management [facility] [address] [place] [address] Tabatha Bergman PharmD [address] [place] [address] documented as of this encounter Visit Diagnoses Diagnosis Type 2 diabetes mellitus with hyperglycemia, unspecified whether terminal makeup operator insulin use (HCC) documented in this encounter Additional Health Concerns Assessment Noted Time PHQ-9 Depression Total Score: 0 04/28/19 10:03 AM EST documented as of this encounter Care Teams Apron Man Relationship Specialty Start Date End Date Ivet Chanel FNP [address] [place] [address] PCP - General Family Medicine 05/27/22 11/28/23 Name, [place] [address] PCP - General Internal Medicine 11/29/23 12/06/23 Lianna Uribe DO [address] [place] [address] PCP - General Family Medicine 12/07/23 Tabatha Bergman PharmD [address] [place] [address] [phone] Pharmacist Pharmacy 11/27/24 documented as of this encounter
--- OUTSIDE RECORDS SUMMARY | 2024-12-25 12:49 | XMS_ITS | Encounter Summary ---
Author Organization [employer] Address [address] [place] [address] 7t [place] [address] Care Team Providers Care Service Manager Name Role Phone Ivet Chanel Primary Care Provider [phone] Mukul Camejo MD Primary Care Provider [phone] Lianna Uribe DO Primary Care Provider [phone] PuTabatha cisneros PharmD Unavailable Reason for Visit * Reason Onset Date Comments Call Back Request 06/14/2023 Encounter Details Date Type Department Care Team (Late st Contact Info) Description 06/14/2023 Telephone [facility] MEDICINE [address] [place], [place] [phone] Ivet Chanel FNP [address] [place] [address] Call Back Request Social History Tobacco Use [...] documented in this encounter Plan of Treatment Upcoming Encounters Date Type Department Care Team (Late st Contact Info) Description 01/22/2025 11:00 AM EDT Medication Management [facility] MED[facility]INE [address] [place] [address] Tabatha Bergman PharmD 230 [facility] [place] [address] documented as of this encounter Visit Diagnoses Not on filedocumented in this encounter Additional Health Concerns Assessment Noted Time PHQ-9 Depression Total Score: 0 04/15/19 24 2:10 PM EST documented as of this encounter Care Teams Service Manager Relationship Specialty Start Date End Date Ivet Chanel FNP [address] [place], [place] [phone] PCP - General Family Medicine 05/27/22 11/28/23 Name, MD Mukul [address] [place], [place] [phone] PCP - General Internal Medicine 11/29/23 12/06/23 Lianna Uribe DO [address] [place], [place] [phone] PCP - General Family Medicine 12/07/23 Tabatha Bergman PharmD [address] [place], [place] [phone] Pharmacist Pharmacy 11/27/24 documented as of this encounter
--- OUTSIDE RECORDS SUMMARY | 2024-12-25 12:49 | XMS_ITS | Encounter Summary ---
Author Organization [employer] Address [address] [place] [address] 7t [place] [address] Care Team Providers Care Vegetable Trimmer Name Role Phone Ivet Chanel Primary Care Provider +- Mukul Camejo MD Primary Care Provider [phone] Lianna Uribe DO Primary Care Provider + Tabatha Bergman PharmD Unavailable [phone] Reason for Visit * Reason Comments Med Refill Encounter Details Date Type Department Care Team (Late st Contact Info) Description 02/24/2023 Refill [facility] MEDICINE [address] [place], [place] [phone] Ivet Chanel FNP [address] [place] [address] Social History Tobacco Use Types Packs/Day Years [...] Description 01/22/2025 11:00 AM EDT Medication Management [facility] MEDICINE [address] [place] [address] Tabatha Bergman, PharmD [address] [place] [address] documented as of this encounter Visit Diagnoses Not on filedocumented in this encounter Additional Health Concerns Assessment Noted Time PHQ-9 Depression Total Score: 0 04/28/19 23 10:03 AM EST documented as of this encounter Care Teams Vegetable Trimmer Relationship Specialty Start Date End Date Ivet Chanel FNP [address] [place] [address] PCP - General Family Medicine 05/27/22 11/28/23 Mukul Camejo MD [address] [place], [place] [phone] PCP - General Internal Medicine 11/29/23 12/06/23 Lianna Uribe DO [address] [place] [address] [phone] PCP - General Family Medicine 12/07/23 Tabatha Bergman, PharmD [address] [place] [address] Pharmacist Pharmacy 11/27/24 documented as of this encounter
--- OUTSIDE RECORDS SUMMARY | 2024-12-25 12:49 | XMS_ITS | Encounter Summary ---
Author Organization [employer] Address [address] [place] [address] 7t [place] [address] Care Team Providers Care Remelt Sugar Boiler Name Role Phone Ivet Chanel Primary Care Provider [phone] Mukul Camejo MD Primary Care Provider [phone] Lianna Uribe DO Primary Care Provider [phone] Tabatha Bergman PharmD Unavailable Reason for Visit * Reason Onset Date Comments Med Refill 09/19/2023 Encounter Details Date Type Department Care Team (Late st Contact Info) Description 09/19/2023 Telephone [facility] MEDICINE [address] [place], [place] [phone] Ivet Chanel FNP [address] [place] [address] Med Refill Social History Tobacco Use Types [...] MG/3ML solution pen-injector To be sent to: [facility] - [place], [place] - 230 [facility] documented in this encounter Plan of Treatment Upcoming Encounters Date Type Department Care Team ([facility] st Contact Info) Description 01/22/2025 11:00 AM EDT Medication Management [facility] MEDICINE [address] [place] [address] Tabatha Bergman, PharmD 230 [facility] [place] [address] documented as of this encounter Visit Diagnoses Not on filedocumented in this encounter Additional Health Concerns Assessment Noted Time PHQ-9 Depression Total Score: 0 04/15/19 24 2:10 PM EST documented as of this encounter Care Teams Remelt Sugar Boiler Relationship Specialty Start Date End Date Ivet Chanel FNP [address] [place] [address] PCP - General Family Medicine 05/27/22 11/28/23 Mukul Camejo MD [address] [place] [address] PCP - General Internal Medicine 11/29/23 12/06/23 Lianna Uribe DO [address] [place] [address] PCP - General Family Medicine 12/07/23 Tabatha Bergman PharmD [address] [place] [address] Pharmacist Pharmacy 11/27/24 documented as of this encounter
--- OUTSIDE RECORDS SUMMARY | 2024-12-25 12:49 | XMS_ITS | Encounter Summary ---
Author Organization [employer] Address [address] [place] [address] 7t [place] [address] Care Team Providers Care Tower Air Traffic Control Specialist Name Role Phone Ivet Chanel Primary Care Provider +- Mukul Camejo MD Primary Care Provider [phone] Lianna Uribe DO Primary Care Provider + Tabatha Bergman PharmD Unavailable [phone] Reason for Visit * Reason Onset Date Comments Medication Question 02/24/2023 Encounter Details Date Type Department Care Team (Late st Contact Info) Description 02/24/2023 Telephone [facility] MEDICINE [address] [place], [place] [phone] Ivet Chanel FNP [address] [place] [address] Medication Question Social History Tobacco Use Types [...] mg pt stated medication was discussed during [facility] visit on 01/31/23. Any questions contact pt at [phone] documented in this encounter Plan of Treatment Upcoming Encounters Date Type Department Care Team (Late st Contact Info) Description 01/22/2025 11:00 AM EDT Medication Management [facility] MEDICINE [address] [place], [place] [phone] Tabatha Bergman, PharmD [address] [place], [place] [phone] documented as of this encounter Visit Diagnoses Not on filedocumented in this encounter Additional Health Concerns Assessment Noted Time PHQ-9 Depression Total Score: 0 04/28/19 10:03 AM EST documented as of this encounter Care Teams Tower Air Traffic Control Specialist Relationship Specialty Start Date End Date Ivet Chanel FNP [address] [place] [address] PCP - General Family Medicine 05/27/22 11/28/23 Name, MD Mukul [address] [place] [address] PCP - General Internal Medicine 11/29/23 12/06/23 Lianna Uribe DO [address] [place] [address] PCP - General Family Medicine 12/07/23 Tabatha Bergman PharmD [address] [place] [address] Pharmacist Pharmacy 11/27/24 documented as of this encounter
--- OUTSIDE RECORDS SUMMARY | 2024-12-25 12:49 | XMS_ITS | Encounter Summary ---
Author Organization [employer] Address [address] [place] [address] 7t [place] [address] Care Team Providers Care Telephone Service Representative Name Role Phone Ivet Chanel Primary Care Provider [phone] Muukl Camejo MD Primary Care Provider [phone] Lianna Uribe DO Primary Care Provider [phone] Tabatha Bergman PharmD Unavailable Encounter Details Date Type Department Care Team (Late st Contact Info) Description 10/19/2022 Orders Only [facility] MEDICINE [address] [place] [address] Ivet Chanel FNP [address] [place] [address] Social History Tobacco Use Types Packs/Day Years [...] 11:00 AM EDT Medication Management [facility] MEDICINE [address] [place] [address] Tabatha Bergman, Jewel [address] [place] [address] documented as of this encounter Visit Diagnoses Not on filedocumented in this encounter Additional Health Concerns Assessment Noted Time PHQ-9 Depression Total Score: 0 04/28/19 10:03 AM EST documented as of this encounter Care Teams Telephone Service Representative Relationship Specialty Start Date End Date Ivet Chanel FNP [address] [place] [address] PCP - General Family Medicine 05/27/22 11/28/23 Mukul Camejo MD [address] [place] [address] PCP - General Internal Medicine 11/29/23 12/06/23 Lianna Uribe DO [address] [place] [address] PCP - General Family Medicine 12/07/23 Tabatha Bergman PharmD [address] [place] [phone] Pharmacist Pharmacy 11/27/24 documented as of this encounter
--- OUTSIDE RECORDS SUMMARY | 2024-12-25 12:49 | XMS_ITS | Encounter Summary ---
Author Organization [facility] Address [address] [place] [address] Care Team Providers Care Psychosocial Rehabilitation Counselor Name Role Phone Miah Emerson Primary Care Provider [phone] Reason for Referral * Consultation (Routine) - Authorized Specialty Diagnoses / Procedures Referred By Kyra christianson Referred To Contact Orthopaedic Surgery Diagnoses Chronic low back pain with right-sided sciatica, unspecified back [place] [address] Phone: tel: fax: Betsy Reddy NP 119 [facility] [place] [address] Phone: tel: fax: Referral ID Status Reason Start Date Expiration Date V isits Requested Visits Authorized [id number] Authorized 12/20/2024 01/19/2026 6 6 Encounter Details Date Type Department Care Team (Late st Contact Info) Description 12/20/2024 Transcribe Orders [facility] Physician Referral Services [address] [place] [address] [place] [address] Chronic low back pain with right-sided sciatica, unspecified back pain laterality (Primary Dx) Social History Tobacco Use Types Packs/Day Years Used Date Smoking Tobacco: Never Smokeless Tobacco: Never Comments Unknown Sex and Gender Information Value Date Recorded Sex Assigned at Unknown 12/21/2024 9:08 AM EDT Legal Sex Female 2:32 PM EDT Gender Identity Not on file Sexual Orientation Not on file documented as of this encounter Plan of Treatment Upcoming Encounters Date Type Department Care Team (Late st Contact Info) Description 12/26/2024 3:30 PM EDT Office Visit [facility] A [address] [place] [address] Betsy Reddy NP 119 [facility] [place] [address] Scheduled Referrals Name Type Priority Associated Diagnoses Orde r Schedule Ambulatory referral to Spine Center Outpatient Referral Routine Chronic low back pain with right-sided sciatica, unspecified back pain laterality Expected: 12/20/2024, Expires: 01/19/2026 documented as of this encounter Visit Diagnoses Diagnosis Chronic low back pain with right-sided sciatica, unspecified back pain laterality- Primary documented in this encounter Care Teams Psychosocial Rehabilitation Counselor Relationship Specialty Start Date End Date Miah Emerson [address] [place] [address] PCP - General Internal Medicine 12/29/16 documented as of this encounter
--- OUTSIDE RECORDS SUMMARY | 2024-12-25 12:49 | XMS_ITS | Encounter Summary ---
Author Organization [facility] Address [address] [place] [address] Care Team Providers Care Transport Engineer Name Role Phone Miah Emerson Primary Care Provider [phone] Encounter Details Date Type Department Care Team (Late st Contact Info) Description 09/13/2024 Orders Only External Imaging [address] [place] [address] Radiology, External [address] [place] [address] Social History Tobacco Use Types Packs/Day Years [...] Encounters Date Type Department Care Team (Late Contact Info) Description 12/26/2024 3:30 PM EDT Office Visit [facility] A [address] [place] [address] Betsy Reddy NP 119 [facility] [place] [address] Pending Results Name Type Priority Associated Diagnoses Date /Time XR Transfer of Outside Films L-Spine Imaging Routine 12/24/2024 10:59 AM EDT Scheduled Orders Name Type Priority Associated Diagnoses Orde r Schedule XR Transfer of Outside Films L-Spine Imaging Routine Expected: 2024, Expires: 02/23/2026 documented as of this encounter Visit Diagnoses Not on filedocumented in this encounter Care Teams Transport Engineer Relationship Specialty Start Date End Date Miah Emerson [address] [place] [address] PCP - General Internal Medicine 12/29/16 documented as of this encounter
--- OUTSIDE RECORDS SUMMARY | 2024-12-25 12:49 | XMS_ITS | Clinical Summary ---
Author Organization [facility] Address [address] [place] [address] Care Team Providers Care Administrator Health Care Facility Name Role Phone Unavailable Primary Care Provider [...] Encounters Date Type Department Care Team Description 12/07/2024 1:40 PM EDT Office Visit [facility] [address] [place] [address] Eleuterio Melo RDH from Last 3 Months Immunizations Immunization Administration [...] Care Team (Late st Contact Info) Description 06/07/2025 3:00 PM EDT Office Visit [facility] [address] [place] [phone] Eleuterio Melo, [facility] [address] [place] [address] Health Maintenance Due Date Last Done Comments Anxiety Screening 1968 Dental FMX/Pano 1968 HPV Screening 1968 Pap + HPV 1968 Tobacco Screening 1968 Cervical Cancer Screening [address] Colonography 2013 Colonoscopy 2013 Colorectal Cancer Screening 2013 FIT/gFOBT 2013 Fecal DNA 2013 Flexible Sigmoidoscopy 2013 Breast Cancer Screening (Mammogram) 10/03/2023 10/02/2021, 07/19/2018 Alcohol and Drug Screen 03/28/2024 Depression Annual Screen 03/28/2024 [id number] ( season) 2024 09/05/2023, 10/23/2021, 02/04/2021, Additional history exists Imm-Influenza (#1) 2024 Hypertension Screening (#1) 06/06/2025 Dental BW 12/09/2025 12/07/2024, 05/26, 03/03/2023, Additional history exists Dental Examination 12/09/2025 12/07/2024, 0 06/06/2024, 03/03/2023, Additional history exists Dental Perio Charting 12/09/2025 12/07/2024, 025 Dental Prophy 12/09/2025 12/07/2024, 0304/2024, 03/03/2023, Additional history exists Diabetes Screening 11/28/2027 11/27/2024, 0 11/27/2024, 07/30/2024, Additional history exists Lipid Screening 07/30/2029 07/30/2024, 09/01/2022 Imm-DTaP/Tdap/Td (2 - Td or Tdap) 03/18/2030 020 Imm-Zoster, Recombinant Completed 01/19/2022, 11/16 Imm-Hepatitis B Completed 10/18/2023, 09/13/2023 HIV Screening Completed 07/30/2024, 07/30/2024 Hepatitis C Screening Completed 07/30/2024 Imm-Pneumococcal 50+ Completed 07/30/2024 Cervical Ablation/Cold-Knife Conization Discontinued Cervical Cryotherapy Discontinued Colposcopy Discontinued Endometrial Biopsy Discontinued Excision/Leep Discontinued HPV Genotyping Discontinued Vaginal Pap Discontinued Vulvoscopy Discontinued Procedures Procedure Name Priority Date/Time Associated Diagnosis Comments DENTAL CASE MANAGEMENT - MOTIVATIONAL INTV Routine 12/07/2024 1:40 PM EDT Encounter for dental examination PROPHYLAXIS - ADULT Routine 12/07/2024 1 :40 PM EDT Encounter for dental examination BITEWINGS - FOUR RADIOGRAPHIC IMAGES Routine 12/07/2024 1:40 PM EDT Encounter for dental examination COMP PERIODONTAL EVALUATION - NEW/EST PATIENT Routine 12/07/2024 1:40 PM EDT Encounter for dental examination PERIODIC ORAL EVALUATION ESTABLISHED PATIENT Routine 12/07/2024 1:40 PM EDT Encounter for dental examination CARIES RISK ASSESSMENT & DOC FINDING MOD RISK Routine 12/07/2024 1:40 PM EDT Encounter for dental examination NUTRITIONAL COUNSELING CONTROL OF DENTAL DISEASE Routine 12/07/2024 1:40 PM EDT Encounter for dental examination ORAL HYGIENE INSTRUCTIONS Routine 12/07/2024 1:40 PM EDT Encounter for dental examination ORAL CANCER SCREENING Routine 12/07/2024 1:40 PM EDT Encounter for dental examination CASE PRESENTATION SUBS DTL & EXTENSIVE TX PLN Routine 12/07/2024 1:40 PM EDT Encounter for dental examination from Last 3 Months Insurance [employer]AF[employer] [place]
--- OUTSIDE RECORDS SUMMARY | 2024-12-25 12:49 | XMS_ITS | Encounter Summary ---
Author Organization [employer] Address [address] [facility] 7t [place] [address] Care Team Providers Care Delimer Name Role Phone Lianna Uribe DO Primary Care Provider + [phone] Tabatha Bergman PharmD Unavailable [phone] Encounter Details Date Type Department Care Team (Late st Contact Info) Description 12/25/2024 Refill [facility] [address] [place] [address] Lianna Uribe DO [address] [place] [address] Social History Tobacco Use Types Packs/Day Years [...] encounter Miscellaneous Notes * Telephone Encounter - Tabatha Bergman PharmD - 12/25/2024 11:02 AM EDT Patient seen in [facility] today. Requests refill for Celebrex which was prescribed in [facility] visit 11/27 for acute use but which she found to be very effective for pain management. Queuing to PCP for consideration. documented in this encounter Plan of Treatment Upcoming Encounters Date Type Department Care Team (Late st Contact Info) Description 01/22/2025 11:00 AM EDT Medication Management [facility] [address] [place] [address] Tabatha Bergman PharmD [address] [place] [address] documented as of this encounter Visit Diagnoses Not on filedocumented in this encounter Additional Health Concerns Assessment Noted Time PHQ-9 Depression Total Score: 0 07/31/19 25 11:13 AM EDT documented as of this encounter Care Teams Delimer Relationship Specialty Start Date End Date Lianna Uribe DO [address] [place] [address] PCP - General Family Medicine 12/07/23 Tabatha Bergman, BreanaD [address] [place] [id number] Pharmacist Pharmacy 11/27/24 documented as of this encounter
--- OUTSIDE RECORDS SUMMARY | 2024-12-25 12:49 | XMS_ITS | Encounter Summary ---
Author Organization [employer] Address [address] [place] [address] [address] [place] [address] Care Team Providers Care Immigration Attorney Name Role Phone Ivet Chanel Primary Care Provider [phone] Mukul Camejo MD Primary Care Provider Lianna Uribe DO Primary Care Provider [phone] PuTabatha cisneros PharmD Unavailable Reason for Visit * Reason Onset Date Comments Appointment Confirmation 10/11/2022 Encounter Details Date Type Department Care Team (Late st Contact Info) Description 10/11/2022 Telephone [facility] [address] [place], [place] [phone] Ivet Chanel FNP [address] [place] [address] Appointment Confirmation Social History Tobacco Use Types [...] agreed and understood. * Telephone Encounter - Maico Mckee - 10/11/2022 11:08 AM EDT Tc from pt requesting a call from a nurse in [facility] to r/s appt for BP Check on 10/21/2022 Please contact pt at [phone] documented in this encounter Plan of Treatment Upcoming Encounters Date Type Department Care Team (Late st Contact Info) Description 01/22/2025 11:00 AM EDT Medication Management [facility] [address] [place] [address] Tabatha Bergman, PharmD [address] [place] [address] documented as of this encounter Visit Diagnoses Not on filedocumented in this encounter Additional Health Concerns Assessment Noted Time PHQ-9 Depression Total Score: 0 04/28/19 23 10:03 AM EST documented as of this encounter Care Teams Immigration Attorney Relationship Specialty Start Date End Date Ivet Chanel FNP [address] [place] [address] PCP - General Family Medicine 05/27/22 11/28/23 Name, MD Mukul [address] [place] [address] PCP - General Internal Medicine 11/29/23 12/06/23 Lianna Uribe DO [address] [place] [address] PCP - General Family Medicine 12/07/23 Tabatha Bergman PharmD [address] [place] [address] Pharmacist Pharmacy 11/27/24 documented as of this encounter
--- OUTSIDE RECORDS SUMMARY | 2024-12-25 12:49 | XMS_ITS | Encounter Summary ---
Author Organization [employer] Address [address] [place] [address] [address] [place] [address] Care Team Providers Care Vice President Payment Name Role Phone Chery Jimenes Primary Care Provider Ivet Cuenca Primary Care Provider +- Mukul Camejo MD Primary Care Provider + Lianna Uribe DO Primary Care Provider + Tabatha Bergman PharmD Unavailable [phone] Encounter Details Date Type Department Care Team (Late Contact Info) Description 03/16/2022 Orders Only [facility] [address] [place] [phone] Chery Jimenes FNP Social History Tobacco Use [...] Department Care Team (Late Contact Info) Description 01/22/2025 11:00 AM EDT Medication Management [facility] [address] [place] [phone] Tabatha Bergman PharmD [address] [place] [address] documented as of this encounter Visit Diagnoses Not on filedocumented in this encounter Care Teams Vice President Payment Relationship Specialty Start Date End Date Chery Jimenes FNP PCP - General Family Medicine 03/03/22 05/26/22 Ivet Chanel FNP [address] [place] [phone] PCP - General Family Medicine 05/27/22 11/28/23 Mukul Camejo MD [address] [place] [address] PCP - General Internal Medicine 11/29/23 12/06/23 Lianna Uribe DO [address] [place] [address] PCP - General Family Medicine 12/07/23 Tabatha Bergman PharmD [address] [place] [phone] Pharmacist Pharmacy 11/27/24 documented as of this encounter
--- OUTSIDE RECORDS SUMMARY | 2024-12-25 12:49 | XMS_ITS | Encounter Summary ---
Author Organization [email or web address] Address [address] [facility] 7[address] [place] [address] Care Team Providers Care Staple Cutter Name Role Phone Ivet Chanel Primary Care Provider [phone] Mukul Camejo MD Primary Care Provider Lianna Uribe DO Primary Care Provider + Tabatha Bergman PharmD Unavailable Encounter Details Date Type Department Care Team (Late st Contact Info) Description 10/12/2023 Orders Only [facility] [address] [place] [address] Ivet Chanel FNP [address] [place] [address] Type 2 diabetes mellitus with hyperglycemia (CMS/HCC) [...] Description 01/22/2025 11:00 AM EDT Medication Management [facility] [address] [place] [address] Tabatha Bergman, PharmD [address] [place] [address] documented as of this encounter Visit Diagnoses Diagnosis Type 2 diabetes mellitus with hyperglycemia (HCC) documented in this encounter Additional Health Concerns Assessment Noted Time PHQ-9 Depression Total Score: 0 04/15/19 24 2:10 PM EST documented as of this encounter Care Teams Staple Cutter Relationship Specialty Start Date End Date Ivet Chanel FNP [address] [place] [address] PCP - General Family Medicine 05/27/22 11/28/23 Mukul Camejo MD [address] [place] [phone] PCP - General Internal Medicine 11/29/23 12/06/23 Lianna Uribe DO [address] [place] [address] PCP - General Family Medicine 12/07/23 Tabatha Bergman, Jewel [address] [place] [address] Pharmacist Pharmacy 11/27/24 documented as of this encounter
--- OUTSIDE RECORDS SUMMARY | 2024-12-25 12:50 | XMS_ITS | Clinical Summary ---
Author Organization [employer] Address [address] [place] [address] [address] [place] [address] Care Team Providers Care Risk Management Consultant Name Role Phone AlesiaLianna ellis Primary Care Provider [phone]- [phone] PuTabatha cisneros PharmD Unavailable [phone] Allergies Active Allergy Reactions Criticality Noted Date Comments Diphenhydramine 05/02/2023 Hydrochlorothiazide Hives 09/10/2016 Latex Hives 07/02/2020 Pea 01/31/2023 Fish Oil 01/31/2023 Medications TRUEplus Lancets 33G misc TEST BLOOD SUGAR TWICE DAILY 023 Active albuterol (Ventolin HFA) 108 (90 Base) MCG/ACT inhaler INHALE 2 PUFFS BY MOUTH EVERY 4 TO 6 HOURS NEEDED 18 g 3 024 Active cholecalciferol (Vitamin D-3) 25 MCG tablet Take 1 tablet (25 mcg) by mouth Once per day. 90 tablet 3 025 2025 Active glucose blood (FREESTYLE LITE) test strip Test blood sugar twice daily 100 strip 11 025 Active fluticasone (Flonase) 50 MCG/ACT nasal spray Administer 1 spray into each nostril Once per day. Shake gently. Before first use, prime pump. After use, clean tip and replace cap. 48 g 3 025 Active Additional Information Patient taking differently:1 spray Each NostrilDaily PRN, allergies, Shake gently. Before first use, prime pump. After use, clean tip and replace cap., Reported on 11/27/2024 atorvastatin (Lipitor) 10 MG tablet Take 1 tablet (10 mg) by mouth Once per day. 90 tablet 3 025 2025 Active cetirizine (ZyrTEC) 10 MG tablet Take 1 tablet (10 mg) by mouth Once per day. 90 tablet 3 025 2025 Active baclofen (Lioresal) 10 MG tablet TAKE 1 TABLET BY MOUTH THREE TIMES DAILY IN THE MORNING, AT NOON, AND AT BEDTIME NEEDED FOR MUSCLE SPASMS 60 tablet 3 Active Diclofenac Sodium 1 % gel APPLY 2 GRAMS TOPICALLY TO AFFECTED AREA(S) 4 TIMES A DAY IN THE MORNING, AT NOON, IN THE EVENING, AND AT BEDTIME NEEDED FOR PAIN 200 g 2 Active omeprazole (PriLOSEC) [address] capsule TAKE 1 CAPSULE BY MOUTH EVERY DAY BEFORE BREAKFAST DO NOT BREAK, CRUSH, DISSOLVE OR CHEW Active losartan (Cozaar) 50 MG tablet Take 1 tablet (50 mg) by mouth Once per day. 90 tablet 1 025 2025 Active insulin pen needle 32G x 4 mm misc Use to inject insulin 1 times daily 100 each 3 Active venlafaxine XR (Effexor XR) 37.5 MG 24 hr capsule TAKE 1 CAPSULE BY MOUTH EVERY DAY DO NOT BREAK, CRUSH, DISSOLVE OR CHEW 30 capsule 3 Active atenolol (Tenormin) 50 MG tabletIndicatio ns:Benign hypertension TAKE 1 TABLET BY MOUTH EVERY MORNING 90 tablet 1 Active Blood Glucose Monitoring Suppl (FreeStyle Lite) device Inject 1 each under the skin 2 times daily. Use to test blood sugar as directed 1 each Active insulin degludec (Tresiba FlexTouch) 200 UNIT/ML injectionIndica tions:Type 2 diabetes mellitus with hyperglycemia, unspecified whether buttermaker helper insulin use (HCC) Inject 14 Units under the skin at bedtime. Increase, as directed, to max of 38 units daily. 9 mL 1 Active ipratropium (Atrovent) 0.03 % nasal spray Administer 2 sprays into affected nostril(s) every 12 (twelve) hours. 04/12/27 Discontinued(M ed list cleanup (will not trigger notification to Pharmacy)) Blood Glucose Monitoring Suppl (FreeStyle Honaker Lite) w/Device kit TEST BLOOD SUGAR TWICE DAILY 022 2024 Discontinued(M ed list cleanup (will not trigger notification to Pharmacy)) atenolol (Tenormin) 50 MG tabletIndicatio ns:Benign hypertension TAKE 1 TABLET BY MOUTH EVERY DAY IN THE MORNING 90 tablet 1 2024 Discontinued docusate sodium (Colace) 100 MG capsule Take 1 capsule (100 mg) by mouth 2 times daily. 180 capsule 3 2024 Discontinued(M ed list cleanup (will not trigger notification to Pharmacy)) polycarbophil (Fibercon) 625 MG tablet Take 1 tablet (625 mg) by mouth 2 times daily. 180 tablet 3 2024 Discontinued(M ed list cleanup (will not trigger notification to Pharmacy)) polyethylene glycol, PEG, 3350 (MiraLax) 17 GM/SCOOP powder Take 17 g by mouth if needed each day (constipation). 527 g 3 2024 Discontinued(P atient refused) lidocaine (Lidoderm) 5 % patch Apply 2 patches topically if needed each day for mild pain. Remove & discard patch within 12 hours or as directed by MD. 60 patch 3 2024 Discontinued(I neffective) venlafaxine XR (Effexor XR) 37.5 MG 24 hr capsule Take 1 capsule (37.5 mg) by mouth Once per day. Do not crush or chew. 30 capsule 3 2024 Discontinued glipiZIDE (Glucotrol) 10 MG tabletIndicatio ns:Type 2 diabetes mellitus with hyperglycemia, unspecified whether long-term insulin use (HCC) Take 1 tablet (10 mg) by mouth before evening meal. 90 tablet 1 2024 Discontinued(T herapy completed) Gas Relief Extra Strength 125 MG chewable tablet CHEW 1 TABLET BY MOUTH EVERY 6 HOURS NEEDED FOR GAS 30 tablet 1 2024 Discontinued(M ed list cleanup (will not trigger notification to Pharmacy)) amLODIPine (Norvasc) 10 MG tablet TAKE 1 TABLET BY MOUTH EVERY MORNING 90 tablet 1 025 2024 Discontinued(A lternate therapy) naproxen (Naprosyn) 500 MG tablet TAKE 1 TABLET BY MOUTH TWICE DAILY IN THE MORNING AND AT BEDTIME NEEDED FOR MILD PAIN 30 tablet 1 025 2024 Discontinued(I neffective) Mounjaro 2.5 MG/0.5ML solution auto-injector INJECT ONE PEN (=2.5MG) SUBCUTANEOUSLY ONCE A WEEK DIRECTED 2 mL 3 025 2024 Discontinued(S jhony effects) insulin degludec (Tresiba FlexTouch) 200 UNIT/ML injectionIndica tions:Type 2 diabetes mellitus with hyperglycemia, unspecified whether long-term insulin use (HCC) Inject 10 Units under the skin in the morning. 9 mL 5 025 2024 Discontinued(R eorder (will not trigger notification to Pharmacy)) celecoxib (CeleBREX) 200 MG capsuleIndicati ons:Chronic low back pain with right-sided sciatica, unspecified back pain laterality Take 1 capsule (200 mg) by mouth 2 times daily for 10 days. 20 capsule 025 2024 Active Problems Problem Noted Date Diagnosed Date [...] throat 08/16/2023 03/19/2024 Dislocation of jaw 01/31/2023 5 Assessment & Plan (01/31/2023 5:38 PM EST): [...] for the next 48h, Vaginal irritation 06/04/2020 4 Calcaneal spur 12/03/2015 07/30/2024 Encounters Date Type Department Care Team Description 12/25/2024 Refill [facility] [address] [place] [address] Lianna Uribe DO 12/25/2024 Travel 12/16/2024 Refill [facility] [address] [place] [address] Lianna Uribe DO Benign hypertension 12/06/2024 Refill [facility] [address] [place] [address] Lianna Uribe DO 11/27/2024 10:40 AM EDT Office Visit [facility] [address] [place] [address] Name, MD Mukul Chronic low back pain with right-sided sciatica, unspecified back pain laterality (Primary Dx); Elevated blood pressure reading 11/27/2024 Travel 11/23/2024 Refill [facility] [address] [place] [address] Lianna Uribe DO 11/21/2024 Refill [facility] [address] [place] [address] Lianna Uribe DO 11/14/2024 2:00 PM EDT Office Visit [facility] [address] [place] [address] Rehan, Mariola, OD Hordeolum internum of left upper eyelid (Primary Dx) 11/14/2024 Travel 11/12/2024 Travel 11/02/2024 Refill [facility] [address] [place] [address] Lianna Uribe DO 10/28/2024 Refill [facility] [address] [place] [address] Lianna Uribe DO 10/12/2024 Telephone [facility] [address] [place] [address] Lianna Uribe DO Nurse Triage 09/28/2024 Refill [facility] [address] [place] [address] Lianna Uribe DO from Last 3 Months Immunizations Immunization Administration Dates Next Due HepB-CpG 10/18/2023,09/13/2023 Moderna [...] Sign Reading Time Taken Comments Blood Pressure 122/80 12/25/2024 11:08 AM EDT Pulse 73 12/25/2024 11:08 AM EDT Temperature 36.6 C (97.9 F) 11/27/2024 10:30 AM EDT Respiratory Rate 18 11/27/2024 10:30 AM EDT Oxygen Saturation 98% 11/27/2024 10:30 AM EDT Inhaled Oxygen Concentration - - Weight 111 kg (244 lb 9.6 oz) 11/27/2024 10:30 A M EDT Height 168 cm (5' 6.14 ) 07/30/2024 11:11 AM EDT Body Mass Index 39.31 07/30/2024 11:11 AM EDT Plan of Treatment Upcoming Encounters Date Type Department Care Team (Late st Contact Info) Description 01/22/2025 11:00 AM EDT Medication Management [facility] [address] [place] [address] Tabatha Bergman, PharmD [address] [place] [address] Health Maintenance Due Date Last Done Comments CT Colonography 1968 Colonoscopy 1968 Colorectal Cancer Screening 1968 FIT DNA/Cologuard 1968 FIT 1968 FOBT 1968 Sigmoidoscopy 1968 Diabetes: Foot Exam 1978 Hepatitis A Vaccines (1 of 2 - Risk 2-dose series) 08/24/1987 Pap Smear 1989 Cervical Cancer Screening 1998 HPV/Cotest 1998 COVID-19 Vaccine ( season) 2024 09/05/2023, 10/23/2021, 02/04/2021, Additional history exists Influenza Vaccine (#1) 2024 Eye Exam 02/01/2025 02/02/2024, 04/2 11/2023, 07/25/2023, Additional history exists Diabetes: Hemoglobin A1C 02/26/2025 025, 07/30/2024, 07/30/2024, Additional history exists SDOH Screening 07/23/2025 07/23/2024 Alcohol/Substance Use Screening 07/30/2025 07/30/2024 Depression Screening 07/30/2025 07/30/2024, 07/31/19 Diabetes: Urine Protein Screening 07/30/2025 07/30/2024, 09/01/2022, 03/15/2022, Additional history exists Disability Screening 07/30/2025 07/30/2024 Lipid Panel 07/30/2025 07/30/2024, 06/0 09/2022, 03/15/2022, Additional history exists Tobacco Screening 12/05/2025 12/05/2024 Mammogram 08/14/2026 08/14/2024, 07/0 10/2021, 06/14/2020, Additional history exists DTaP/Tdap/Td Vaccines (2 - Td or Tdap) 03/18/2030 03/18/2020 RSV Patients and Patients Aged 60 years or older (1 - 1-dose 75+ series) 08/24/2043 Zoster Vaccines Completed 01/19/2022, 11/16/2021 Hepatitis B Vaccines Completed 10/18/2023, 09/13/19 24 HIV Screening Completed 07/30/2024 Hepatitis C Screening Completed 07/30/2024 Pneumococcal Vaccine: 50+ Years Completed 07/30/2024 HIB Vaccines Aged Out No longer eligi ble based on patient's age to complete this topic HPV Vaccines Aged Out No longer eligi ble based on patient's age to complete this topic IPV Vaccines Aged Out No longer eligi ble based on patient's age to complete this topic Meningococcal B Vaccine Aged Out No l onger eligible based on patient's age to complete [...] Procedure Name Priority Date/Time Associated Diagnosis Comments POCT GLYCATED HEMOGLOBIN, TOTAL Routine 11/27/2024 9:40 AM EDT Type 2 diabetes mellitus with hyperglycemia, unspecified whether buttermaker helper insulin use (CMS/HCC) BI MAMMOGRAM SCREENING TOMOSYNTHESIS BILATERAL Routine 08/14/2024 7:48 AM EDT Encounter for screening mammogram for malignant neoplasm of breast HEPATITIS C AB W/REFL TO HCV RNA, QN, PCR Routine 07/30/2024 12:14 PM EDT Routine history and physical examination of adult Type 2 diabetes mellitus with hyperglycemia, unspecified whether long-term insulin use (CMS/HCC) Essential hypertension Other hyperlipidemia Fatty liver Anemia, unspecified type VICKIE (obstructive sleep apnea) Chronic GERD Chronic constipation BMI 39.0-39.9,adult HIV 1/2 ANTIGEN/ANTIBODY, FOURTH GENERATION W/RFL Routine 07/30/2024 12:14 PM EDT Routine history and physical examination of adult Type 2 diabetes mellitus with hyperglycemia, unspecified whether long-term insulin use (CMS/HCC) Essential hypertension Other hyperlipidemia Fatty liver Anemia, unspecified type VICKIE (obstructive sleep apnea) Chronic GERD Chronic constipation BMI 39.0-39.9,adult ALBUMIN, RANDOM URINE W/CREATININE Routine 07/30/2024 12:14 PM EDT Routine history and physical examination of adult Type 2 diabetes mellitus with hyperglycemia, unspecified whether long-term insulin use (CMS/HCC) Essential hypertension Other hyperlipidemia Fatty liver Anemia, unspecified type VICKIE (obstructive sleep apnea) Chronic GERD Chronic constipation BMI 39.0-39.9,adult LIPID PANEL, STANDARD Routine 07/30/2024 12:14 PM EDT Routine history and physical examination of adult Type 2 diabetes mellitus with hyperglycemia, unspecified whether long-term insulin use (CMS/HCC) Essential hypertension Other hyperlipidemia Fatty liver Anemia, unspecified type VICKIE (obstructive sleep apnea) Chronic GERD Chronic constipation BMI 39.0-39.9,adult from Last 3 Months or Most Recently Relevant to Health Maintenance Results * (ABNORMAL) POCT HGB A1C (11/27/2024 9:40 AM EDT) Hemoglobin A1C 8.8(A) 4.0 - 5.7 % Blood 11/27/2024 9:40 AM EDT Lianna Uribe DO POINT OF CARE TEST ENTER/KATARZYNA T ORDERABLES Final Result * BI Mammogram Screening Tomosynthesis Bilateral (08/14/2024 7:48 AM EDT) Anatomical Region Laterality Modality Breast Bilateral Mammography 08/14/2024 7:48 AM EDT Narrative 08/20/2024 8:47 PM EDT [facility] [address] [place] [address] Mammography Report Signed Patient: Brianan Francis MR#: [id number] 67 : 1970 Acct:[id number] Age/Sex: 53 / F ADM Date: 08/14/24 Loc: HO.MAMMO Attending Dr: Lianna Uribe DO Ordering Physician: Lianna Uribe DO Results: 1N egative Date of Service: 08/14/24 Follow Up: 1 Year From Orig [facility] Mammogram Procedure(s): MM tomosynthesis screening BI Accession Number(s): [id number] cc: Lianna Uribe DO EXAMINATION: MM SCREENING DIGITAL BREAST TOMOSYNTHESIS, BILATERAL CLINICAL INFORMATION: Screening. Asymptomatic. COMPARISON: Mammography: Comparison is made with available priors TECHNIQUE: Digital breast mammography with tomosynthesis is performed in both the craniocaudal and mediolateral oblique views along with computer-aided detection (CAD). FINDINGS: There are scattered areas of fibroglandular density (ACR BI-RADS breast composition Category b). There are no significant masses, abnormal calcifications, or other abnormalities. MM/MM tomosynthesis screening BI IMPRESSION: No mammographic evidence of malignancy. ASSESSMENT: BI-RADS BI-RADS 1 - Negative RECOMMENDATION: Routine annual mammography screening. 1 year F/U This examination should not preclude the clinical evaluation of a suspicious palpable abnormality. This patient's information was entered into a reminder system with a target due date for their next mammogram. Electronically signed by: Sherie Leggett DO 08/20/2024 08:44 PM EDT RP Dictated By: Sherie Leggett DO Signed By: <Electronically signed by Sherie Leggett DO in OV> 08/20/242043 DD/ 0748 TD/TT: 08/14/24 0803 Networking Administrator: Procedure Note Donotuseinterpreter, Image - 08/20/2024 [facility] [address] [place] [address] Mammography Report Signed Patient: Adarsh Francis#: [id number] 67 : 1970Acct:[id number] Age/Sex: 53 / FADM Date: 08/14/24 Loc: HO.MAMMO Attending Dr: Lianna Uribe DO Ordering Physician: Lianna Uribeults: 1N egative Date of Service: 08/14/24Follow Up: 1 Year From Orig inal Mammogram Procedure(s): MM tomosynthesis screening BI Accession Number(s): [id number] cc: Lianna Uribe DO EXAMINATION: MM SCREENING DIGITAL BREAST TOMOSYNTHESIS, BILATERAL CLINICAL INFORMATION: Screening. Asymptomatic. COMPARISON: Mammography: Comparison is made with available priors TECHNIQUE: Digital breast mammography with tomosynthesis is performed in both the craniocaudal and mediolateral oblique views along with computer-aided detection (CAD). FINDINGS: There are scattered areas of fibroglandular density (ACR BI-RADS breast composition Category b). There are no significant masses, abnormal calcifications, or other abnormalities. MM/MM tomosynthesis screening BI IMPRESSION: No mammographic evidence of malignancy. ASSESSMENT: BI-RADS BI-RADS 1 - Negative RECOMMENDATION: Routine annual mammography screening. 1 year F/U This examination should not preclude the clinical evaluation of a suspicious palpable abnormality. This patient's information was entered into a reminder system with a target due date for their next mammogram. Electronically signed by: Sherie Leggett DO 08/20/2024 08:44 PM EDT RP Dictated By: Sherie Leggett DO Signed By: <Electronically signed by Sherie Leggett DO in OV> 08/20/242043 DD/ 0748 TD/TT: 08/14/24 0803 Networking Administrator: Lianna Uribe DO IMG BI PROCEDURES Edited Res ult - Final * Albumin, Random Urine W/Creatinine (07/30/2024 12:14 PM EDT) Creatinine, Urine 224.22 mg/dL [facility] Microalbumin Urine 12.0 mg/L [facility] Microalbum Creatinine Ratio Ur 5.3 <30 ug/mg cr [facility] Comment:Albumin/Creatinine R atio Reference Ranges: Normal: < 30 ug/mg creatinine Microalbuminuria: 30 - 300 ug/mg creatinineClinical Albuminuria: > 300 ug/mg creatinine Urine (Urine, Random) 07/30/2024 12:14 PM EDT 07/30/2024 1:07 PM EDT Lianna Uribe DO LAB URINE ORDERABLES Final R esult Performing Organization Address [facility] Co de Phone Number [facility] [address] [place] [phone] * Hepatitis C Antibody with Reflex to HCV, RNA, Quantitative, Real-Time PCR (07/30/2024 12:14 PM EDT) Hepatitis C Antibody Nonreactive Nonreactive [facility] Comment:Antibodies to HCV no t detected; does not exclude early acuteHCV infection. Blood Venous blood specimen / Unknown 07/30/2024 12:14 PM EDT 07/30/2024 1:08 PM EDT Lianna Uribe DO LAB BLOOD ORDERABLES Final R esult Performing Organization Address [facility] Co de Phone Number [facility] [address] [place] [phone] * HIV-1/2 Antigen and Antibodies, Fourth Generation, with Reflexes (07/30/2024 12:14 PM EDT) HIV AB/AG Nonreactive Nonreactive [facility] Comment:HIV-1 p24 Ag and/or HIV-1/HIV-2 Ab not detected.A test result that is nonreactive does not exclude thepossibility of exposure to or infection with HIV-1 and/orHIV-2. Nonreactive results in this assay for individualswith prior exposure to HIV-1 and/or HIV-2 may be due toantigen and antibody levels that are below the limit ofdetection of this assay.The [employer] HIV Ag/Ab Combo assay result andsupplemental assay results should be interpreted inconjunction with the patient's clinical presentation,history and other laboratory results. If the results areinconsistent with clinical evidence, additional testing issuggested to confirm the result. Blood Venous blood specimen / Unknown 07/30/2024 12:14 PM EDT 07/30/2024 1:08 PM EDT us Lianna Uribe DO LAB BLOOD ORDERABLES Final R esult [facility] [address] [place] [phone] * (ABNORMAL) Lipid Panel, Standard (07/30/2024 12:14 PM EDT) Triglycerides 117 <150 mg/dL [facility] Comment:Desirable Triglyceri de: less than 150 mg/dLBorderline High Triglyceride 150-199 mg/dLHigh Triglyceride: 200-499 mg/dLVery High Triglyceride: greater than or equal to 5OO mg/dL Cholesterol 217(H) <200 mg/dL [facility] Comment:Desirable Cholestero l: less than 200 mg/dLBorderline High Cholesterol: 200-239 mg/dLHigh Cholesterol: greater than 239 mg/dL LDL Cholesterol Calculated 144(H) <100 mg/dL [facility] Comment:Desirable LDL: less than 100 mg/dLNear Optimal/Above Optimal LDL: 110- 129 mg/dLBorderline High LDL: 130-159 mg/dLHigh LDL: 160-189 mg/dLVery High LDL: greater than or equal to 190 mg/dL HDL Cholesterol 50 >40 mg/dL [facility] Comment:Desirable HDL: great er than 40 mg/dL Note: This HDL assay may give artificially low results in patients with liver disease. Blood Venous blood specimen / Unknown 07/30/2024 12:14 PM EDT 07/30/2024 1:08 PM EDT us Lianna Uribe DO LAB BLOOD ORDERABLES Final R esult [facility] [address] [place] [phone] from Last 3 Months or Most Recently Relevant to Health Maintenance Insurance LIMITED [facility] FULL * Guarantor: Brianna Francis Account Type Relation to Patient Date of Phone Billing Address Personal/Family Self [address] [phone] Care Teams Risk Management Consultant Relationship Specialty Start Date End Date Lianna Uribe DO [address] [place] [address] PCP - General Family Medicine 12/07/23 Tabatha Bergman, Jewel [address] [place] [address] Pharmacist Pharmacy 11/27/24
[2024-12-25 14:51] LABS: Anion Gap 13 (12-20); Blood Urea Nitrogen 16 mg/dL (9-16); Calcium 9.0 mg/dL (8.4-10.2); Carbon Dioxide 28 mmol/L (22-29); Chloride 103 mmol/L (96-108); Estimated Glomerular Filt Rate > 60; Potassium 4.7 mmol/L (3.3-5.1); Sodium 139 mmol/L (135-145)
== END 2024-12-25 11:21 | disposition home or self-care (01) ==
LOC: HO.HHCL 11:20
PROVIDERS: PCP Family Medicine; Visit Provider Family Medicine
DX: E11.65 Type 2 diabetes mellitus with hyperglycemia (principal); I10 Essential (primary) hypertension
CPT/HCPCS: 36415; 80048